=== PATIENT | male | born 1965 | race Caucasian/White ===

== ENCOUNTER 2017-04-09 20:47 | Inpatient (IN) | payer OTHER ==
[~2017-04-09] VITALS: Ht 182.9 cm; Wt 92.8 kg
[~2017-04-09 20:47] MED LIST: ASPI-650; BENA10TA; DIVA500T33; INSU100V18; LEVEM; METF1000; NCN500CCR; OLAN15TA3; PIOG30TA19; QUET200T; SERT100T
[2017-04-09 22:36] VITALS: TEMP 98.1
[2017-04-09] MEDS ORDERED: SOD CHLORIDE 0.9% 1,000 ML IV STA (22:38)
[2017-04-09 23:17] LABS: ADD SCAN DIFF NO
[2017-04-09 23:19] LABS: BASOPHIL # 0.1 10^3/ul (0.0-0.1); BASOPHILS % 0.6 % (0.0-2.0); EOSINOPHILS # 0.2 10^3/ul (0.0-0.5); EOSINOPHILS % 2.5 % (0.0-7.0); HEMATOCRIT 39.9 % (42.0-52.0); LYMPHOCYTES # 3.2 10^3/ul (0.8-2.9); LYMPHOCYTES % 32.7 % (15.0-51.0); MEAN CORPUSCULAR HEMOGLOBIN 29.5 pg (29.0-33.0); MEAN CORPUSCULAR HGB CONC 35.1 g/dl (32.0-37.0); MEAN CORPUSCULAR VOLUME 84.2 fl (82.0-101.0); MEAN PLATELET VOLUME 9.4 fl (7.4-10.4); NEUTROPHIL # 5.2 10^3/ul (1.6-7.5); PLATELET COUNT 245 10^3/UL (140-415); RED BLOOD COUNT 4.74 10^6/ul (4.70-6.10); RED CELL DISTRIBUTION WIDTH 12.3 % (11.5-14.5); WHITE BLOOD COUNT 9.7 10^3/ul (4.8-10.8)
[2017-04-09 23:37] LABS: CALCIUM 9.9 mg/dl (8.4-10.2); CREATININE 0.55 mg/dl (0.61-1.24)
[2017-04-09] MEDS ORDERED: KETOROLAC 30 MG INJ IV STA (23:49)
[2017-04-10] MEDS ORDERED: CLINDAMYCIN 900 MG/D5W (PMX) 50 ML IVPB SCH
[2017-04-10] MEDS ORDERED: VANCOMYCIN 1 GM (PMX) 250 ML IVPB SCH
[2017-04-10] MEDS ORDERED: LIDOCAINE 1% (MPF) 5 ML VIAL SC ONE
--- NOTE | 2017-04-10 00:40 | RADRPT ---
PROCEDURE: XR right foot. CLINICAL INDICATION: Right foot pain and swelling. Clinical concern for osteomyelitis TECHNIQUE: AP, lateral and oblique views of the right foot were obtained. COMPARISON: None. FINDINGS: Mineralization is within normal limits. Callus formation about a healed fifth metatarsal fracture i s present. The subtle chronic-appearing periosteal reaction of the second proximal phalanx may be f or old injury. There is no focal demineralization to suggest osteomyelitis. There is no evidence f or dislocation. Mild narrowing of the metatarsal phalangeal joint of the great toe is seen. Metall ic internal fixation hardware of the distal tibia is present. The soft tissues are unremarkable. Th ere is no evidence for radiopaque foreign body. RPTAT:HJJR IMPRESSION: 1. No evidence of osteomyelitis involving the right foot. 2. Callus formation about an old healed right third metatarsal fracture. 3. Some periosteal reaction adjacent to the second proximal phalanx may be the sequela of prior inj ury. Physician Abdi Date Time Electronically viewed and signed by Physician Abdi on 04/10/2017 00:39 JR/
[2017-04-10] MEDS ORDERED: ACETAMINOPHEN 325 MG TAB PO PRN (01:00)
[2017-04-10] MEDS ORDERED: ONDANSETRON 4 MG INJ IV PRN ×2 (01:00→02:30)
[2017-04-10] MEDS ORDERED: HYDROCODONE/APAP (5/325) TAB PO ONE (01:00)
[2017-04-10 01:30] VITALS: Ht 182.9 cm; Wt 92.8 kg
[2017-04-10 01:33] VITALS: BP_SYST 171; BP_SYST 182; BP_DIAS 82; BP_DIAS 85; RESP 18
[2017-04-10] MEDS ORDERED: VANCOMYCIN IV PER PHARMACY XX SCH (02:30)
[2017-04-10] MEDS ORDERED: ZOLPIDEM 5 MG TAB PO PRN (02:30)
[2017-04-10] MEDS ORDERED: DOCUSATE SODIUM 100 MG CAP PO PRN (02:30)
[2017-04-10] MEDS ORDERED: BISACODYL (EC) 5 MG TAB PO PRN (02:30)
[2017-04-10] MEDS ORDERED: NACL 0.9% 3 ML SYG IV SCH (02:30)
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
[2017-04-10 05:00] VITALS: BP 150/73; PULSE 66; RESP 18
--- NOTE | 2017-04-10 05:21 | HP ---
Date/Time of Note Date/Time of Note DATE: 04/10/17 TIME: 05:20 Assessment/Plan VTE Prophylaxis VTE Prophylaxis Intervention: LMWH Lines/Catheters IV Catheter Type (from [facility]): Saline Lock Assessment/Plan Chief Complaint/Hosp Course This is a 51-year-old male being admitted to the [facility] floor for: #1 diabetic foot ulcer/infection: No signs of osteomyelitis on xray. Continue IV antibiotics of vancomycin and Clinda. Wound culture. Consult podiatry #2 bipolar disorder: Verify home medications and resume. Check Depakote level. Patient states that he is not on Depakote however it is on his med rec nonetheless we will check a Depakote level and verify his home medications. #3 diabetes mellitus: appears poorly controlled. Verify home insulin dose. Insulin sliding scale. Carb controlled diet. Check a1c. #4 hypertension: Continue home medications #5 DVT GI prophylaxis: Lovenox, Protonix Further treatment strategy will be implemented as per the clinical course Problems: HPI/ROS Admit Date/Time Admit Date/Time Apr 10, 2017 at 00:47 Hx of Present Illness Chief complaint: Right foot ulcer with drainage 5 days This 51-year-old male presents emergency room for increasingly painful right foot ulcer and has had some whitish yellow drainage for the last 5 days. Is diabetic and says that her sugars been running in the 200s lately. He usually cannot feel his feet very well but is feeling pangs of pain coming from the right foot. Is also been a very foul odor from the foot lately. States that he has never been antibiotics for this, aside from topical triple antibiotic treatment. Has had chills but no fevers. Allergies: NKDA Medications: See TY BARNES Const: As per HPI Eyes : No pain discharge or redness or change in visual acuity ENT: No pain, sore throat, congestion, congestion, dysphagia or discharge Respiratory: No shortness of breath, cough, sputum, wheezing, or pleuritic pain Cardiovascular: No chest pain, palpitation, PND, or edema GI : no change in appetite, abdominal pain, nausea, vomiting, diarrhea, constipation, or change in the color his stool Genitourinary: No dysuria, hematuria, flank pain , discharge or CVA tenderness Musculoskeletal: As per HPI Skin: As per HPI Neuro: No headache, dizziness, syncope, seizure, focal weakness Endocrine: No polyuria, polydipsia, temperature intolerance Psych: No hallucination, depression, anxiety or suicidal ideation PMH/Family/Social Past Medical History Diabetes, hypertension, right foot infection, hyperlipidemia, bipolar disorder Past Surgical History Ankle surgery, right jaw surgery Family History Significant Family History: hypertension (Brother) Social History Smoking Status: Current every day smoker (1 pack per day 40 years) Exam/Review of Systems Vital Signs Vitals Vital Signs Date Time Temp Pulse Resp B/P Pulse Ox O2 Delivery O2 Flow Rate FiO2 04/10/17 01:33 97.6 66 18 171/82 97 04/10/17 01:09 Room Air Exam Exam General: Patient is well-developed well-nourished The patient is alert oriented -3 lying comfortably in bed. HEENT: Atraumatic, normocephalic. The pupils are equal, round and reactive. Extraocular motor are intact Neck: Supple with full range of motion. No rigidity or meningismus Chest: Nontender Lungs: Clear to auscultation bilaterally no crackles rales or wheezing Heart: Normal S1-S2, Regular rhythm and rate. No murmur, S3, or S4 Abdomen: Soft , nontender, nondistended , bowel sounds are present. No guarding no rebound tenderness , No masses or organomegaly. No costovertebral temporal angle mass Extremities: Right foot with plantar ulceration to ball of foot approximately 2 cm, some purulent material. No abscess or fluctuance, no necrosis but there is surrounding erythema and erythema spreading to the foot and ankle with positive calor. Capillary refill is intact. No cyanosis. There is some foot swelling. (As per my exam and ED physician exam) Neurologic: Normal mental status, speech normal, cranial nerves II through XII are intact, motor and sensory are intact, no focal weakness Additional Comments PROCEDURE: XR right foot. CLINICAL INDICATION: Right foot pain and swelling. Clinical concern for osteomyelitis TECHNIQUE: AP, lateral and oblique views of the right foot were obtained. COMPARISON: None. FINDINGS: Mineralization is within normal limits. Callus formation about a healed fifth metatarsal fracture is present. The subtle chronic-appearing periosteal reaction of the second proximal phalanx may be for old injury. There is no focal demineralization to suggest osteomyelitis. There is no evidence for dislocation. Mild narrowing of the metatarsal phalangeal joint of the great toe is seen. Metallic internal fixation hardware of the distal tibia is present. The soft tissues are unremarkable. There is no evidence for radiopaque foreign body. RPTAT:HJJR IMPRESSION: 1. No evidence of osteomyelitis involving the right foot. 2. Callus formation about an old healed right third metatarsal fracture. 3. Some periosteal reaction adjacent to the second proximal phalanx may be the sequela of prior injury. Physician Abdi Date Time Electronically viewed and signed by Mushtaq Vang Physician on 04/10/2017 00:39 Labs Result Diagram: 04/09/17224904/09/17 2250 Medications Medications Current Medications Ondansetron HCl (Zofran Inj) 4 mg Q6H PRN IV NAUSEA AND/OR VOMITING; Start 04/10 at 02:30 Acetaminophen (Tylenol Tab) 650 mg Q6H PRN PO PAIN LEVEL 1-3 OR FEVER; Start at 02:30 Morphine Sulfate (morphine) 2 mg Q4H PRN IV SEVERE PAIN LEVEL 7-10; Start at 02:30 Docusate Sodium (Colace) 100 mg Q12H PRN PO CONSTIPATION; Start 04/10/17 at 02: 30 Bisacodyl (Dulcolax) 5 mg DAILY PRN PO CONSTIPATION; Start 04/10/17 at 02:30 Zolpidem Tartrate (Ambien) 5 mg QHS PRN PO SLEEP; Start 04/10/17 at 02:30 Pantoprazole (Protonix Iv) 40 mg DAILY@06 IV ; Start 04/10/17 at 06:00 Enoxaparin Sodium (Lovenox) 40 mg DAILY SC ; Start 04/10/17 at 09:00 Aspirin (Aspirin) 81 mg DAILY PO ; Start 04/10/17 at 09:00 Benazepril HCl (Lotensin) 10 mg DAILY PO ; Start 04/10/17 at 09:00 Divalproex Sodium (Depakote) 500 mg DAILY PO ; Start 04/10/17 at 09:00 Sertraline HCl (Zoloft) 100 mg DAILY PO ; Start 04/10/17 at 09:00 Olanzapine (Zyprexa) 15 mg DAILY PO ; Start 04/10/17 at 09:00 Quetiapine Fumarate 200 mg 200 mg DAILY PO ; Start 04/10/17 at 09:00 Vancomycin HCl/ Sodium Chloride (Vancocin/NS) 250 ml @ 83.333 mls/ hr Q12H IVPB ; Start 04/10/17 at 09:00 MAREN ANTUNEZ Apr 10, 2017 05:21
[2017-04-10] MEDS: PANTOPRAZOLE 40 MG INJ IV SCH (05:31)
[2017-04-10] MEDS ORDERED: GLUCOSE GEL 15 GRAM TUBE BUCCAL PRN (06:00)
[2017-04-10] MEDS ORDERED: GLUCAGON 1 MG INJ IM PRN (06:00)
[2017-04-10] MEDS ORDERED: DEXTROSE 50% 50 ML SYRINGE IV PRN ×2 (06:00)
[2017-04-10] MEDS ORDERED: GLUCOSE GEL 15 GRAM TUBE PO PRN ×2 (06:00)
[2017-04-10 06:12] LABS: ADD SCAN DIFF NO
[2017-04-10 06:14] LABS: BASOPHIL # 0.1 10^3/ul (0.0-0.1); BASOPHILS % 0.6 % (0.0-2.0); EOSINOPHILS # 0.3 10^3/ul (0.0-0.5); EOSINOPHILS % 3.2 % (0.0-7.0); HEMATOCRIT 38.2 % (42.0-52.0); HEMOGLOBIN 13.4 g/dl (14.0-18.0); LYMPHOCYTES # 3.9 10^3/ul (0.8-2.9); MEAN CORPUSCULAR HEMOGLOBIN 29.6 pg (29.0-33.0); MEAN CORPUSCULAR HGB CONC 35.1 g/dl (32.0-37.0); MEAN CORPUSCULAR VOLUME 84.5 fl (82.0-101.0); MEAN PLATELET VOLUME 9.2 fl (7.4-10.4); MONOCYTE # 0.7 10^3/ul (0.3-0.9); MONOCYTES % 7.7 % (0.0-11.0); NEUTROPHIL # 3.8 10^3/ul (1.6-7.5); NEUTROPHILS % 43.3 % (39.0-77.0); PLATELET COUNT 234 10^3/UL (140-415); RED BLOOD COUNT 4.52 10^6/ul (4.70-6.10); RED CELL DISTRIBUTION WIDTH 12.4 % (11.5-14.5); WHITE BLOOD COUNT 8.7 10^3/ul (4.8-10.8)
[2017-04-10 06:50] LABS: ALBUMIN 3.9 g/dl (3.3-4.9); ALBUMIN/GLOBULIN RATIO 1.56; BILIRUBIN,INDIRECT 0.1 mg/dl (0-1.1); BILIRUBIN,TOTAL 0.1 mg/dl (0.2-1.3); CALCIUM 8.9 mg/dl (8.4-10.2); CREATININE 0.56 mg/dl (0.61-1.24); MAGNESIUM 1.5 mg/dl (1.7-2.5); POTASSIUM 4.3 mmol/L (3.5-5.1); TOTAL PROTEIN 6.4 g/dl (6.1-8.1)
[2017-04-10] MEDS ORDERED: LEVEMIR SC (06:53)
[2017-04-10] MEDS ORDERED: METF1000 PO (06:53)
[2017-04-10] MEDS ORDERED: LIT300 PO (06:53)
[2017-04-10] MEDS ORDERED: SERT100T PO (06:53)
[2017-04-10] MEDS ORDERED: OLAN15TA3 PO (06:53)
[2017-04-10 07:25] VITALS: BP 156/83; RESP 18
[2017-04-10] MEDS: QUETIAPINE 100 MG TAB PO SCH (08:15)
[2017-04-10] MEDS: ASPIRIN 81 MG TAB PO SCH (08:15)
[2017-04-10 08:16] LABS: THYROID STIMULATING HORMONE 2.84 MIU/L (0.465-4.680)
[2017-04-10] MEDS: OLANZAPINE 5 MG TAB PO SCH (08:16)
[2017-04-10] MEDS: SERTRALINE 100 MG TAB PO SCH (08:16)
[2017-04-10] MEDS: BENAZEPRIL 10 MG TAB PO SCH (08:17)
[2017-04-10] MEDS: INSULIN ASPART [NOVOLOG] 3 ML PEN SC SCH ×4 (08:20→21:00)
[2017-04-10] MEDS: ENOXAPARIN 40 MG/0.4 ML SYG SC SCH (08:21)
[2017-04-10] MEDS ORDERED: INSULIN DETEMIR [LEVEMIR] 3ML CART SC SCH ×3 (09:00→21:00)
[2017-04-10] MEDS ORDERED: SERTRALINE 100 MG TAB PO SCH (09:00)
[2017-04-10] MEDS: NICOTINE (14 MG/24 HR) PATCH TRANSDERM SCH (09:00)
[2017-04-10] MEDS ORDERED: OLANZAPINE 5 MG TAB PO SCH (09:00)
[2017-04-10] MEDS ORDERED: DIVALPROEX (EC) 500 MG TAB PO SCH (09:00)
[2017-04-10] MEDS ORDERED: MAGNESIUM SULFATE 1 GM/D5W 100 ML IVPB ONE (10:00)
[2017-04-10] MEDS ORDERED: hydrALAzine 20 MG INJ IV PRN (10:00)
[2017-04-10] MEDS: VANCOMYCIN 1.5 GM in SOD CHLORIDE 0.9% 250 ML IVPB SCH ×2 (10:15→22:25)
[2017-04-10] MEDS: LITHIUM CARBONATE 300 MG CAP PO SCH ×2 (10:15→21:34)
[2017-04-10] MEDS: INSULIN DETEMIR [LEVEMIR] 3ML CART SC SCH ×2 (10:39→21:45)
--- NOTE | 2017-04-10 14:25 | RADRPT ---
PROCEDURE: XR Chest. CLINICAL INDICATION: PICC line placement TECHNIQUE: PA and lateral chest x-ray. COMPARISON: None. FINDINGS: Left-sided PICC line terminates 3 cm into right atrium. The lungs are clear. No pleural effusion identified. No evidence of pneumothorax. The cardiomediastinal silhouette is unremarkable. The soft tissues are within normal limits. Bony structures are unremarkable. IMPRESSION: 1. No acute disease is seen in the chest. 2. Left-sided PICC line terminates 3 cm into the right atrium and should be repositioned. RPTAT: QQ .Geovani Jeffery MD, Date Time Electronically viewed and signed by .Geovani Jeffery MD, on 04/10/2017 14:25 .M/
[2017-04-10] MEDS: morphine 2 MG INJ IV PRN (14:58)
--- NOTE | 2017-04-10 14:58 | HP ---
Date/Time of Note Date/Time of Note DATE: 04/10/17 TIME: 14:41 Assessment/Plan VTE Prophylaxis VTE Prophylaxis Intervention: SCD's Lines/Catheters IV [facility] [place] Assessment/Plan Chief Complaint/Hosp Course Right foot infected diabetic foot ulceration Cellulitis/ abscess right foot Prior metatarsal fracture DM2 with neuropathy/ poor glycemic control Delayed wound healing Failed outpatient treatment Problems: Assessment/Plan Right foot infected diabetic foot ulceration Cellulitis/ abscess right foot Prior metatarsal fracture DM2 with neuropathy/ poor glycemic control Delayed wound healing Failed outpatient treatment H&P reviewed. Reviewed radiographs. No radiographic evidence of OM. Rec incision and drainage with debridement of ulceration. Obtain consent. Discussed with patient. At risk for worsening infection/ limb loss. Right foot wound cultures. Pt on Vanc. Add empiric abx/ af Zosyn/ Diflucan. Further recs once culture results available. Coordination of care with nursing. Daily wound care recommendations given. Dispesnse postop shoe. Rec eval NWB with crutches/ walker right foot. HPI/ROS Admit Date/Time Admit Date/Time Apr 10, 2017 at 00:47 Hx of Present Illness Right foot infected diabetic ulceration. Present for several months. Worsen recently. Pt failed outpatient abx and wound care. Pt with poorly controlled DM. Has pain to right foot. Had general malaise. ROS Laboratory Tests Test 04/09/17 22:50 04/10/17 05:16 04/10/17 07:47 04/10/17 12:13 White Blood Count 9.710^3/ul 8.710^3/ul Red Blood Count 4.7410^6/ul 4.5210^6/ul Hemoglobin 14.0g/dl 13.4g/dl Hematocrit 39.9% 38.2% Mean Corpuscular Volume 84.2fl 84.5fl Mean Corpuscular Hemoglobin 29.5pg 29.6pg Mean Corpuscular Hemoglobin Concent 35.1g/dl 35.1g/dl Red Cell Distribution Width 12.3% 12.4% Platelet Count 22837^3/UL 68361^3/UL Mean Platelet Volume 9.4fl 9.2fl Neutrophils % 54.0% 43.3% Lymphocytes % 32.7% 45.0% Monocytes % 10.0% 7.7% Eosinophils % 2.5% 3.2% Basophils % 0.6% 0.6% Nucleated Red Blood Cells % 0.0/100WBC 0.0/100WBC Neutrophils # 5.210^3/ul 3.810^3/ul Lymphocytes # 3.210^3/ul 3.910^3/ul Monocytes # 1.010^3/ul 0.710^3/ul Eosinophils # 0.210^3/ul 0.310^3/ul Basophils # 0.110^3/ul 0.110^3/ul Nucleated Red Blood Cells # 0.010^3/ul 0.010^3/ul Sodium Level 135mmol/L 134mmol/L Potassium Level 4.0mmol/L 4.3mmol/L Chloride Level 96mmol/L 104mmol/L Carbon Dioxide Level 25mmol/L 23mmol/L Anion Gap 18 11 Blood Urea Nitrogen 18mg/dl 14mg/dl Creatinine 0.55mg/dl 0.56mg/dl Glucose Level 382mg/dl 358mg/dl Calcium Level 9.9mg/dl 8.9mg/dl Hemoglobin A1c 13.7% Magnesium Level 1.5mg/dl Total Bilirubin 0.1mg/dl Direct Bilirubin 0.00mg/dl Indirect Bilirubin 0.1mg/dl Aspartate Amino Transf (AST/SGOT) 51IU/L Alanine Aminotransferase (ALT/SGPT) 55IU/L Alkaline Phosphatase 118IU/L Total Protein 6.4g/dl Albumin 3.9g/dl Globulin 2.50g/dl Albumin/Globulin Ratio 1.56 Triglycerides Level 101mg/dl Cholesterol Level 120mg/dl LDL Cholesterol, Calculated 76mg/dl HDL Cholesterol 24mg/dl Cholesterol/HDL Ratio 5.0RATIO Thyroid Stimulating Hormone (TSH) 2.840MIU/L Valproic Acid (Depakene) Level < 10ug/ml Bedside Glucose 371mg/dL 139mg/dL Current Medications Medications (Trade) Dose Ordered Sig/Ramírez Route PRN Reason Start Time Stop Time Status Last Admin Dose Admin Sodium Chloride 1,000 ml @ 1,000 mls/hr Q1H STAT IV 04/09/17 22:38 04/09/17 23:37 DC 04/09/17 22:59 1,000 MLS/HR Vancomycin HCl 250 ml @ 125 mls/hr ONCE IVPB 04/10/17 00:00 04/10/17 01:59 DC 04/10/17 00:38 125 MLS/HR Clindamycin HCl/ Dextrose (Cleocin 900 Mg/ D5W (Pmx)) 50 ml @ 50 mls/hr ONCE IVPB 04/10/17 00:00 04/10/17 00:59 DC 04/10/17 00:18 50 MLS/HR Lidocaine (Xylocaine 1% (Mpf)) 5 ml ONCE ONCE SC 04/10/17 00:00 04/10/17 00:01 DC 04/10/17 13:36 5 ML Ketorolac Tromethamine (Toradol) 30 mg ONCE STAT IV 04/09/17 23:49 04/09/17 23:50 DC 04/10/17 00:17 30 MG Ondansetron HCl (Zofran Inj) 4 mg BRIDGE ORDER PRN IV NAUSEA AND/OR VOMITING 04/10/17 01:00 04/10/17 02:10 DC Acetaminophen (Tylenol Tab) 650 mg ER BRIDGE PRN PO MILD PAIN/FEVER 04/10/17 01:00 04/10/17 02:10 DC Acetaminophen/ Hydrocodone Bitart ([place] (5/325)) 1 tab ONCE ONCE PO 04/10/17 01:00 04/10/17 01:01 DC IV Flush (NS 3 ml) 3 ml PER PROTOCOL IV 04/10/17 02:30 Ondansetron HCl (Zofran Inj) 4 mg Q6H PRN IV NAUSEA AND/OR VOMITING 04/10/17 02:30 Acetaminophen (Tylenol Tab) 650 mg Q6H PRN PO PAIN LEVEL 1-3 OR FEVER 04/10/17 02:30 Morphine Sulfate (morphine) 2 mg Q4H PRN IV SEVERE PAIN LEVEL 7-10 04/10/17 02:30 Docusate Sodium (Colace) 100 mg Q12H PRN PO CONSTIPATION 04/10/17 02:30 Bisacodyl (Dulcolax) 5 mg DAILY PRN PO CONSTIPATION 04/10/17 02:30 Zolpidem Tartrate (Ambien) 5 mg QHS PRN PO SLEEP 04/10/17 02:30 Pantoprazole (Protonix Iv) 40 mg DAILY@06 IV 04/10/17 06:00 04/10/17 05:31 40 MG Enoxaparin Sodium (Lovenox) 40 mg DAILY SC 04/10/17 09:00 04/10/17 08:21 40 MG Vancomycin HCl (Vanco Iv Per Pharmacy) VANCOMYCIN PER PHARMACY PER PROTOCOL XX 04/10/17 02:30 Aspirin (Aspirin) 81 mg DAILY PO 04/10/17 09:00 04/10/17 08:15 81 MG Benazepril HCl (Lotensin) 10 mg DAILY PO 04/10/17 09:00 04/10/17 08:17 10 MG Divalproex Sodium (Depakote) 500 mg DAILY PO 04/10/17 09:00 04/10/17 09:00 DC Sertraline HCl (Zoloft) 100 mg DAILY PO 04/10/17 09:00 04/10/17 09:00 DC Olanzapine (Zyprexa) 15 mg DAILY PO 04/10/17 09:00 04/10/17 09:00 DC Quetiapine Fumarate 200 mg 200 mg DAILY PO 04/10/17 09:00 04/10/17 08:15 200 MG Vancomycin HCl/ Sodium Chloride (Vancocin/NS) 250 ml @ 83.333 mls/ hr Q12H IVPB 04/10/17 09:00 04/10/17 10:15 83.333 MLS/HR Miscellaneous Information (* Miscellaneous Pharmacy Order) Discontinue current oral sulfonylur... ONCE ONCE XX 04/10/17 05:30 04/10/17 05:35 DC Diagnostic Test (Pha) (Accu-Chek) 1 ea 02 XX 04/11/17 02:00 04/11/17 02:00 DC Miscellaneous Information (* Miscellaneous Pharmacy Order) HYPOGLYCEMIA PROTOCOL w... ONCE ONCE XX 04/10/17 05:30 04/10/17 05:35 DC Insulin Aspart (Novolog Insulin Pen) NOVOLOG *MODERATE* ALGORITHM WITH MEALS BEDTIME SC 04/10/17 08:15 04/10/17 08:20 12 UNIT Miscellaneous Information (* Miscellaneous Pharmacy Order) Discontinue all previ... ONCE ONCE XX 04/10/17 05:30 04/10/17 05:35 DC Diagnostic Test (Pha) (Accu-Chek) 1 ea 02 XX 04/11/17 02:00 Miscellaneous Information 1 ea NOTE XX 04/10/17 06:00 Glucose (Glutose) 15 gm Q15M PRN PO DECREASED GLUCOSE 04/10/17 06:00 Glucose (Glutose) 22.5 gm Q15M PRN PO DECREASED GLUCOSE 04/10/17 06:00 Dextrose (D50w Syringe) 25 ml Q15M PRN IV DECREASED GLUCOSE 04/10/17 06:00 Dextrose (D50w Syringe) 50 ml Q15M PRN IV DECREASED GLUCOSE 04/10/17 06:00 Glucagon (Glucagen) 1 mg Q15M PRN IM DECREASED GLUCOSE 04/10/17 06:00 Glucose (Glutose) 15 gm Q15M PRN BUCCAL DECREASED GLUCOSE 04/10/17 06:00 Nicotine (Nicoderm 14 Mg/ 24hr) 1 patch DAILY TRANSDERM 04/10/17 09:[address] [place] Carbonate ([place] Carbonate) 300 mg BID PO 04/10/17 09:00 04/10/17 10:15 300 MG Olanzapine (Zyprexa) 15 mg DAILY PO 04/10/17 09:00 04/10/17 08:16 15 MG Sertraline HCl (Zoloft) 200 mg DAILY PO 04/10/17 09:00 04/10/17 08:16 200 MG Insulin Detemir (Levemir) 60 unit BID SC 04/10/17 09:00 04/10/17 09:46 DC Insulin Detemir (Levemir) 15 unit DAILY SC 04/10/17 10:00 04/10/17 10:00 DC Insulin Detemir (Levemir) 30 unit BID SC 04/10/17 21:00 04/10/17 21:00 DC Hydralazine HCl 10 mg 10 mg Q6H PRN IV SBP GREATER THAN 160 04/10/17 10:00 Magnesium Sulfate/ Dextrose (Magnesium Sulfate 1 Gm/D5W) 100 ml @ 100 mls/hr ONCE ONCE IVPB 04/10/17 10:00 04/10/17 10:59 DC Insulin Detemir (Levemir) 30 unit BID SC 04/10/17 10:30 04/10/17 10:39 30 UNIT IV Flush 10 ml 10 ml PRN PRN IV IV PROTOCOL 04/10/17 14:30 Piperacillin Sod/ Tazobactam Sod (Zosyn 3.375gm/ 100 ml (Pmx)) 100 ml @ 200 mls/hr Q8 IVPB 04/10/17 22:00 UNV Fluconazole (Diflucan) 200 mg DAILY PO 04/11/17 09:00 UNV Eyes: visual change (poor vision) Skin: other (right foot ulceration with malodor and drainage) Endocrine: dry skin PMH/Family/Social Social History Smoking Status: Current every day smoker (1 pack per day 40 years) Exam/Review of Systems Vital Signs Vitals Vital Signs Date Time Temp Pulse Resp B/P Pulse Ox O2 Delivery O2 Flow Rate FiO2 04/10/17 07:25 97.4 63 18 156/83 96 04/10/17 05:00 Room Air Exam Eyes: EOMI, PERRL, nl conjunctiva, nl lids, nl sclera Respiratory: normal air movement, No congested cough, No crackles/rales, No diminished breath sounds, No intercostal retraction, No labored breathing, No other, No respirations, No tactile fremitus, No wheezing Musculoskeletal: other (incision healed to right medial ankle. varus deformity of forefoot. limited hindfoot PROM. ) Extremities: edema (right foot) Neurological: other (decreased protective sensation) Skin: other (left foot ulceration with ascending cellulitis to dorsal aspect. Plantar ulceration sub 4th MPJ with tunneling. Mycotic changes to nails. Severe dry skin. ), puncture Labs Result Diagram: 04/10/1751504/10/17515 Medications Medications Current Medications Ondansetron HCl (Zofran Inj) 4 mg Q6H PRN IV NAUSEA AND/OR VOMITING; Start 04/10 at 02:30 Acetaminophen (Tylenol Tab) 650 mg Q6H PRN PO PAIN LEVEL 1-3 OR FEVER; Start at 02:30 Morphine Sulfate (morphine) 2 mg Q4H PRN IV SEVERE PAIN LEVEL 7-10; Start at 02:30 Docusate Sodium (Colace) 100 mg Q12H PRN PO CONSTIPATION; Start 04/10/17 at 02: 30 Bisacodyl (Dulcolax) 5 mg DAILY PRN PO CONSTIPATION; Start 04/10/17 at 02:30 Zolpidem Tartrate (Ambien) 5 mg QHS PRN PO SLEEP; Start 04/10/17 at 02:30 Pantoprazole (Protonix Iv) 40 mg DAILY@06 IV Last administered on 04/10/17 05: 31; Admin Dose 40 MG; Start 04/10/17 at 06:00 Enoxaparin Sodium (Lovenox) 40 mg DAILY SC Last administered on 04/10/17 08:21 ; Admin Dose 40 MG; Start 04/10/17 at 09:00 Aspirin (Aspirin) 81 mg DAILY PO Last administered on 04/10/17 08:15; Admin Dose 81 MG; Start 04/10/17 at 09:00 Benazepril HCl (Lotensin) 10 mg DAILY PO Last administered on 04/10/17 08:17; Admin Dose 10 MG; Start 04/10/17 at 09:00 Quetiapine Fumarate 200 mg 200 mg DAILY PO Last administered on 04/10/17 08:15 ; Admin Dose 200 MG; Start 04/10/17 at 09:00 Vancomycin HCl/ Sodium Chloride (Vancocin/NS) 250 ml @ 83.333 mls/ hr Q12H IVPB Last administered on 04/10/17 10:15; Admin Dose 83.333 MLS/HR; Start at 09:00 Diagnostic Test (Pha) (Accu-Chek) 1 ea 02 XX ; Start 04/11/17 at 02:00 Miscellaneous Information 1 ea NOTE XX ; Start 04/10/17 at 06:00 Glucose (Glutose) 15 gm Q15M PRN PO DECREASED GLUCOSE; Start 04/10/17 at 06:00 Glucose (Glutose) 22.5 gm Q15M PRN PO DECREASED GLUCOSE; Start 04/10/17 at 06:00 Dextrose (D50w Syringe) 25 ml Q15M PRN IV DECREASED GLUCOSE; Start 04/10/17 at 06:00 Dextrose (D50w Syringe) 50 ml Q15M PRN IV DECREASED GLUCOSE; Start 04/10/17 at 06:00 Glucagon (Glucagen) 1 mg Q15M PRN IM DECREASED GLUCOSE; Start 04/10/17 at 06:00 Glucose (Glutose) 15 gm Q15M PRN BUCCAL DECREASED GLUCOSE; Start 04/10/17 at 06: 00 Nicotine (Nicoderm 14 Mg/ 24hr) 1 patch DAILY TRANSDERM ; Start 04/10/17 at 09:[address] [place] Carbonate ([place] Carbonate) 300 mg BID PO Last administered on 10:15; Admin Dose 300 MG; Start 04/10/17 at 09:00 Olanzapine (Zyprexa) 15 mg DAILY PO Last administered on 04/10/17 08:16; Admin Dose 15 MG; Start 04/10/17 at 09:00 Sertraline HCl (Zoloft) 200 mg DAILY PO Last administered on 04/10/17 08:16; Admin Dose 200 MG; Start 04/10/17 at 09:00 Hydralazine HCl (Apresoline) 10 mg Q6H PRN IV SBP GREATER THAN 160; Start at 10:00 Insulin Detemir (Levemir) 30 unit BID SC Last administered on 04/10/17 10:39; Admin Dose 30 UNIT; Start 04/10/17 at 10:30 IV Flush 10 ml 10 ml PRN PRN IV IV PROTOCOL; Start 04/10/17 at 14:30 Piperacillin Sod/ Tazobactam Sod (Zosyn 3.375gm/ 100 ml (Pmx)) 100 ml @ 200 mls /hr Q8 IVPB ; Start 04/10/17 at 22:00; Status UNV Fluconazole (Diflucan) 200 mg DAILY PO ; Start 04/11/17 at 09:00; Status UNV ARON MORALEZ DPM Apr 10, 2017 14:52
--- NOTE | 2017-04-10 15:30 | OPR ---
Date/Time of Note Date/Time of Note DATE: 04/10/17 TIME: 15:27 Operative Report Free Text/Dictation Right foot infected diabetic foot ulceration Right foot abscess DM2 poor controlled/ peripheral neuropathy Cellulitis Failed outpatient treatment Preoperative Diagnosis Right foot infected diabetic foot ulceration Right foot abscess DM2 poor controlled/ peripheral neuropathy Cellulitis Failed outpatient treatment Postoperative Diagnosis Right foot infected diabetic foot ulceration Right foot abscess DM2 poor controlled/ peripheral neuropathy Cellulitis Failed outpatient treatment Operation/Procedure Performed Right foot incision and drainage of abscess 5th toe/ irrigation Right foot excisional debridement of ulceration skin/ subcut/ fascia 3 x 1 cm with cultures Surgeon: ARON MORALEZ DPM Anesthesia: other (patient insensate) Estimated Blood Loss: 0 - 10 ml's Specimens tissue culture Grafts/Implants none Complications: None ARON MORALEZ DPM Apr 10, 2017 15:30
--- NOTE | 2017-04-10 16:16 | RADRPT ---
PROCEDURE: Ultrasound guidance for placement of needle in left upper extremity vein. CLINICAL INDICATION: Venous access. TECHNIQUE: Limited sonography of the left upper extremity was performed. Ultrasound images were recorded and s tored in the patient's medical record. COMPARISON: None. FINDINGS: The ultrasound images demonstrate a patent left upper extremity vein. The PICC line was inserted by the PICC line nurse. IMPRESSION: 1. Ultrasound guidance for a needle placement in a left upper extremity vein. 2. The left upper extremity vein is patent. RPTAT: QQ .Marques Ramos MD, MD Date Time Electronically viewed and signed by .Marques Ramos MD, MD on 04/10/2017 16:16 .R/
[2017-04-10] MEDS: PIPER-TAZO 3.375 GM IV (PMX) 100 ML IVPB SCH ×2 (17:18→21:32)
[2017-04-10 19:19] VITALS: BP 148/73; RESP 20
[2017-04-10] MEDS: CLOTRIMAZOLE 1% 30 GM CR TOP SCH (21:35)
[2017-04-10] MEDS: SODIUM HYPOCHLORITE 1/40% 1L IRRIG IRR SCH (21:35)
[2017-04-10] MEDS: GENTAMICIN 0.1% 15 GM OINT TOP SCH (22:25)
[2017-04-11 01:31] VITALS: BP 131/64; RESP 20
[2017-04-11] MEDS: ACCU-CHEK XX SCH (02:00)
[2017-04-11] MEDS ORDERED: ACCU-CHEK XX SCH (02:00)
[2017-04-11] MEDS: PANTOPRAZOLE 40 MG INJ IV SCH (05:33)
[2017-04-11] MEDS: PIPER-TAZO 3.375 GM IV (PMX) 100 ML IVPB SCH ×3 (05:36→21:42)
[2017-04-11 06:05] LABS: ADD SCAN DIFF NO
[2017-04-11 06:46] LABS: BASOPHIL # 0.1 10^3/ul (0.0-0.1); BASOPHILS % 0.9 % (0.0-2.0); EOSINOPHILS # 0.2 10^3/ul (0.0-0.5); EOSINOPHILS % 2.8 % (0.0-7.0); HEMOGLOBIN 13.3 g/dl (14.0-18.0); LYMPHOCYTES # 2.6 10^3/ul (0.8-2.9); LYMPHOCYTES % 33.5 % (15.0-51.0); MEAN CORPUSCULAR HEMOGLOBIN 29.6 pg (29.0-33.0); MEAN CORPUSCULAR VOLUME 84.6 fl (82.0-101.0); MEAN PLATELET VOLUME 9.5 fl (7.4-10.4); MONOCYTE # 0.6 10^3/ul (0.3-0.9); MONOCYTES % 7.5 % (0.0-11.0); NEUTROPHIL # 4.3 10^3/ul (1.6-7.5); PLATELET COUNT 220 10^3/UL (140-415); RED BLOOD COUNT 4.49 10^6/ul (4.70-6.10); RED CELL DISTRIBUTION WIDTH 12.3 % (11.5-14.5); WHITE BLOOD COUNT 7.9 10^3/ul (4.8-10.8)
[2017-04-11 07:08] LABS: CALCIUM 8.4 mg/dl (8.4-10.2); CREATININE 0.5 mg/dl (0.61-1.24); MAGNESIUM 1.6 mg/dl (1.7-2.5); PHOSPHORUS 2.7 mg/dl (2.5-4.9)
[2017-04-11 07:27] VITALS: BP 172/81; RESP 20
[2017-04-11] MEDS: ASPIRIN 81 MG TAB PO SCH (08:02)
[2017-04-11] MEDS: OLANZAPINE 5 MG TAB PO SCH (08:02)
[2017-04-11] MEDS: LITHIUM CARBONATE 300 MG CAP PO SCH ×2 (08:03→20:17)
[2017-04-11] MEDS: SERTRALINE 100 MG TAB PO SCH (08:03)
[2017-04-11] MEDS: QUETIAPINE 100 MG TAB PO SCH (08:03)
[2017-04-11] MEDS: BENAZEPRIL 10 MG TAB PO SCH (08:03)
[2017-04-11] MEDS: GENTAMICIN 0.1% 15 GM OINT TOP SCH ×2 (08:04→20:17)
[2017-04-11] MEDS: SODIUM HYPOCHLORITE 1/40% 1L IRRIG IRR SCH ×2 (08:04→20:16)
[2017-04-11] MEDS: CLOTRIMAZOLE 1% 30 GM CR TOP SCH ×2 (08:04→20:17)
[2017-04-11] MEDS: VANCOMYCIN 1.5 GM in SOD CHLORIDE 0.9% 250 ML IVPB SCH ×2 (08:06→21:42)
[2017-04-11] MEDS: NICOTINE (14 MG/24 HR) PATCH TRANSDERM SCH (08:06)
[2017-04-11] MEDS: INSULIN DETEMIR [LEVEMIR] 3ML CART SC SCH ×2 (08:10→20:19)
[2017-04-11] MEDS: FLUCONAZOLE 200 MG TAB PO SCH (08:12)
[2017-04-11] MEDS: ENOXAPARIN 40 MG/0.4 ML SYG SC SCH (08:16)
[2017-04-11] MEDS: INSULIN ASPART [NOVOLOG] 3 ML PEN SC SCH ×4 (08:17→20:19)
--- NOTE | 2017-04-11 14:03 | PN ---
Date/Time of Note Date/Time of Note DATE: 04/11/17 TIME: 14:00 Assessment/Plan VTE Prophylaxis VTE Prophylaxis Intervention: SCD's Lines/Catheters IV Catheter Type (from Nrsg): PICC Line Central line still needed: No Assessment/Plan Assessment/Plan 51 yo M with mental illness, very poorly controlled DM2 admitted for diabetic foot infection with abscess, sp I&D 7.10 DFI: no OM on imaging, continue vanc zosyn pending further culture data as abscess has been I&D'd, suspect pt will only need an additional 5-7 days of abx post intervention, possibly PO abx pending culture results (levo/bactrim) DM2: cont SSI and long acting insulin CM cs for HH for wound care and home nurse to help with DM control DM diet SCDs Subjective 24 Hr Interval Summary Free Text/Dictation Pt states his foot feels ok. Lives with 3 roommates and hadn't been great about taking his insulin prior to admission. Exam/Review of Systems Vital Signs Vitals Vital Signs Date Time Temp Pulse Resp B/P Pulse Ox O2 Delivery O2 Flow Rate FiO2 04/11/17 07:27 98.9 61 20 172/81 97 04/10/17 05:00 Room Air Intake and Output 04/10/17 04/10/17 04/11/17 15:00 23:00 07:00 Intake Total 550 ml 610 ml Output Total 300 ml Balance 550 ml 310 ml Exam nad, sitting up in bed no mrg lungs clear abd soft no rashes R foot with 3cm open wound on bottom of foot proximal to great toe, active mod serous drainage wound culture still in process Results Result Diagram: 04/11/17 0455 04/11/17 0455 Results 24 hrs Laboratory Tests Test 04/10/17 17:17 04/10/17 21:38 04/11/17 04:55 04/11/17 08:01 Bedside Glucose 189 160 336 H White Blood Count 7.9 Red Blood Count 4.49 L Hemoglobin 13.3 L Hematocrit 38.0 L Mean Corpuscular Volume 84.6 Mean Corpuscular Hemoglobin 29.6 Mean Corpuscular Hemoglobin Concent 35.0 Red Cell Distribution Width 12.3 Platelet Count 220 Mean Platelet Volume 9.5 Neutrophils % 55.0 Lymphocytes % 33.5 Monocytes % 7.5 Eosinophils % 2.8 Basophils % 0.9 Nucleated Red Blood Cells % 0.0 Neutrophils # 4.3 Lymphocytes # 2.6 Monocytes # 0.6 Eosinophils # 0.2 Basophils # 0.1 Nucleated Red Blood Cells # 0.0 Sodium Level 133 L Potassium Level 4.0 Chloride Level 104 Carbon Dioxide Level 27 Anion Gap 6 L Blood Urea Nitrogen 15 Creatinine 0.50 L Glucose Level 298 H Calcium Level 8.4 Phosphorus Level 2.7 Magnesium Level 1.6 L Test 04/11/17 12:13 Bedside Glucose 154 Medications Medications Current Medications Ondansetron HCl (Zofran Inj) 4 mg Q6H PRN IV NAUSEA AND/OR VOMITING; Start 04/10 at 02:30 Acetaminophen (Tylenol Tab) 650 mg Q6H PRN PO PAIN LEVEL 1-3 OR FEVER; Start at 02:30 Morphine Sulfate (morphine) 2 mg Q4H PRN IV SEVERE PAIN LEVEL 7-10 Last administered on 04/10/17 14:58; Admin Dose 2 MG; Start 04/10/17 at 02:30 Docusate Sodium (Colace) 100 mg Q12H PRN PO CONSTIPATION; Start 04/10/17 at 02: 30 Bisacodyl (Dulcolax) 5 mg DAILY PRN PO CONSTIPATION; Start 04/10/17 at 02:30 Enoxaparin Sodium (Lovenox) 40 mg DAILY SC Last administered on 04/11/17 08:16 ; Admin Dose 40 MG; Start 04/10/17 at 09:00 Aspirin (Aspirin) 81 mg DAILY PO Last administered on 04/11/17 08:02; Admin Dose 81 MG; Start 04/10/17 at 09:00 Benazepril HCl (Lotensin) 10 mg DAILY PO Last administered on 04/11/17 08:03; Admin Dose 10 MG; Start 04/10/17 at 09:00 Quetiapine Fumarate 200 mg 200 mg DAILY PO Last administered on 04/11/17 08:03 ; Admin Dose 200 MG; Start 04/10/17 at 09:00 Vancomycin HCl/ Sodium Chloride (Vancocin/NS) 250 ml @ 83.333 mls/ hr Q12H IVPB Last administered on 04/11/17 08:06; Admin Dose 83.333 MLS/HR; Start 04/10 at 09:00 Diagnostic Test (Pha) (Accu-Chek) 1 ea 02 XX ; Start 04/11/17 at 02:00 Miscellaneous Information 1 ea NOTE XX ; Start 04/10/17 at 06:00 Glucose (Glutose) 15 gm Q15M PRN PO DECREASED GLUCOSE; Start 04/10/17 at 06:00 Glucose (Glutose) 22.5 gm Q15M PRN PO DECREASED GLUCOSE; Start 04/10/17 at 06:00 Dextrose (D50w Syringe) 25 ml Q15M PRN IV DECREASED GLUCOSE; Start 04/10/17 at 06:00 Dextrose (D50w Syringe) 50 ml Q15M PRN IV DECREASED GLUCOSE; Start 04/10/17 at 06:00 Glucagon (Glucagen) 1 mg Q15M PRN IM DECREASED GLUCOSE; Start 04/10/17 at 06:00 Glucose (Glutose) 15 gm Q15M PRN BUCCAL DECREASED GLUCOSE; Start 04/10/17 at 06: 00 Nicotine (Nicoderm 14 Mg/ 24hr) 1 patch DAILY TRANSDERM ; Start 04/10/17 at 09:00 [place] Carbonate ([place] Carbonate) 300 mg BID PO Last administered on 08:03; Admin Dose 300 MG; Start 04/10/17 at 09:00 Olanzapine (Zyprexa) 15 mg DAILY PO Last administered on 04/11/17 08:02; Admin Dose 15 MG; Start 04/10/17 at 09:00 Sertraline HCl (Zoloft) 200 mg DAILY PO Last administered on 04/11/17 08:03; Admin Dose 200 MG; Start 04/10/17 at 09:00 Insulin Detemir (Levemir) 30 unit BID SC Last administered on 04/11/17 08:10; Admin Dose 30 UNIT; Start 04/10/17 at 10:30 IV Flush 10 ml 10 ml PRN PRN IV IV PROTOCOL; Start 04/10/17 at 14:30 Piperacillin Sod/ Tazobactam Sod (Zosyn 3.375gm/ 100 ml (Pmx)) 100 ml @ 200 mls /hr Q8 IVPB Last administered on 04/11/17 05:36; Admin Dose 200 MLS/HR; Start 04/10/17 at 15:00 Fluconazole (Diflucan) 200 mg DAILY PO Last administered on 04/11/17 08:12; Admin Dose 200 MG; Start 04/11/17 at 09:00 Clotrimazole (Lotrimin Cr) 1 applic BID TOP Last administered on 04/11/17 08: 04; Admin Dose 1 APPLIC; Start 04/10/17 at 21:00 Gentamicin Sulfate (Gentamicin 0.1% Oint) 1 applic BID TOP Last administered on 04/11/17 08:04; Admin Dose 1 APPLIC; Start 04/10/17 at 21:00 Sodium Hypochlorite (Dakin'S (Dilute 1/40%)) 1 applic BID IRR Last administered on 04/11/17 08:04; Admin Dose 1 APPLIC; Start 04/10/17 at 21:00 Miscellaneous Information (*Rx Drug Level Order Reminder*) VANCOMYCIN TROUGH AT 1999 ONCE ONCE XX ; Start 04/11/17 at 20:00; Stop 04/11/17 at 20:01 KEAGAN MCDONALD MD Apr 11, 2017 14:03
--- NOTE | 2017-04-11 14:42 | PN ---
Date/Time of Note Date/Time of Note DATE: 04/11/17 TIME: 14:35 Assessment/Plan VTE Prophylaxis VTE Prophylaxis Intervention: SCD's Lines/Catheters IV Catheter Type (from Nrs): PICC Line Central line still needed: No Assessment/Plan Chief Complaint/Hosp Course Right foot infected diabetic foot ulceration Cellulitis/ abscess right foot Prior metatarsal fracture DM2 with neuropathy/ poor glycemic control Delayed wound healing Failed outpatient treatment Problems: Assessment/Plan Right foot diabetic foot ulceration Cellulitis right foot s/p debridement DM2 poorly controlled Improved appearance. Cont BID wound care. Improved status. Remain NWB right foot. Further recs once C&S obtained. Subjective 24 Hr Interval Summary Free Text/Dictation F/u right foot infected DFU/ abscess s/p debridement. Culture prelim polymicrobial. Less pain reported. Dressings changed. Denies f/n/v. Constitutional: no complaints Eyes: no complaints Respiratory: no complaints Skin: other (Right foot ulceration plantar aspect sub 4th MPJ extending to toe. Malodor persists. Decreased erythema/ edema. ) Neurologic: other (absent protective sensation) Exam/Review of Systems Vital Signs Vitals Vital Signs Date Time Temp Pulse Resp B/P Pulse Ox O2 Delivery O2 Flow Rate FiO2 04/11/17 07:27 98.9 61 20 172/81 97 04/10/17 05:00 Room Air Intake and Output 04/10/17 04/10/17 04/11/17 15:00 23:00 07:00 Intake Total 550 ml 610 ml Output Total 300 ml Balance 550 ml 310 ml Results Result Diagram: 04/11/17 0455 04/11/17 0455 Results 24 hrs Laboratory Tests Test 04/10/17 17:17 04/10/17 21:38 04/11/17 04:55 04/11/17 08:01 Bedside Glucose 189 160 336 H White Blood Count 7.9 Red Blood Count 4.49 L Hemoglobin 13.3 L Hematocrit 38.0 L Mean Corpuscular Volume 84.6 Mean Corpuscular Hemoglobin 29.6 Mean Corpuscular Hemoglobin Concent 35.0 Red Cell Distribution Width 12.3 Platelet Count 220 Mean Platelet Volume 9.5 Neutrophils % 55.0 Lymphocytes % 33.5 Monocytes % 7.5 Eosinophils % 2.8 Basophils % 0.9 Nucleated Red Blood Cells % 0.0 Neutrophils # 4.3 Lymphocytes # 2.6 Monocytes # 0.6 Eosinophils # 0.2 Basophils # 0.1 Nucleated Red Blood Cells # 0.0 Sodium Level 133 L Potassium Level 4.0 Chloride Level 104 Carbon Dioxide Level 27 Anion Gap 6 L Blood Urea Nitrogen 15 Creatinine 0.50 L Glucose Level 298 H Calcium Level 8.4 Phosphorus Level 2.7 Magnesium Level 1.6 L Test 04/11/17 12:13 Bedside Glucose 154 Medications Medications Current Medications Ondansetron HCl (Zofran Inj) 4 mg Q6H PRN IV NAUSEA AND/OR VOMITING; Start 04/10 at 02:30 Acetaminophen (Tylenol Tab) 650 mg Q6H PRN PO PAIN LEVEL 1-3 OR FEVER; Start at 02:30 Morphine Sulfate (morphine) 2 mg Q4H PRN IV SEVERE PAIN LEVEL 7-10 Last administered on 04/10/17 14:58; Admin Dose 2 MG; Start 04/10/17 at 02:30 Docusate Sodium (Colace) 100 mg Q12H PRN PO CONSTIPATION; Start 04/10/17 at 02: 30 Bisacodyl (Dulcolax) 5 mg DAILY PRN PO CONSTIPATION; Start 04/10/17 at 02:30 Enoxaparin Sodium (Lovenox) 40 mg DAILY SC Last administered on 04/11/17 08:16 ; Admin Dose 40 MG; Start 04/10/17 at 09:00 Aspirin (Aspirin) 81 mg DAILY PO Last administered on 04/11/17 08:02; Admin Dose 81 MG; Start 04/10/17 at 09:00 Benazepril HCl (Lotensin) 10 mg DAILY PO Last administered on 04/11/17 08:03; Admin Dose 10 MG; Start 04/10/17 at 09:00 Quetiapine Fumarate 200 mg 200 mg DAILY PO Last administered on 04/11/17 08:03 ; Admin Dose 200 MG; Start 04/10/17 at 09:00 Vancomycin HCl/ Sodium Chloride (Vancocin/NS) 250 ml @ 83.333 mls/ hr Q12H IVPB Last administered on 04/11/17 08:06; Admin Dose 83.333 MLS/HR; Start 04/10 at 09:00 Diagnostic Test (Pha) (Accu-Chek) 1 ea 02 XX ; Start 04/11/17 at 02:00 Miscellaneous Information 1 ea NOTE XX ; Start 04/10/17 at 06:00 Glucose (Glutose) 15 gm Q15M PRN PO DECREASED GLUCOSE; Start 04/10/17 at 06:00 Glucose (Glutose) 22.5 gm Q15M PRN PO DECREASED GLUCOSE; Start 04/10/17 at 06:00 Dextrose (D50w Syringe) 25 ml Q15M PRN IV DECREASED GLUCOSE; Start 04/10/17 at 06:00 Dextrose (D50w Syringe) 50 ml Q15M PRN IV DECREASED GLUCOSE; Start 04/10/17 at 06:00 Glucagon (Glucagen) 1 mg Q15M PRN IM DECREASED GLUCOSE; Start 04/10/17 at 06:00 Glucose (Glutose) 15 gm Q15M PRN BUCCAL DECREASED GLUCOSE; Start 04/10/17 at 06: 00 Nicotine (Nicoderm 14 Mg/ 24hr) 1 patch DAILY TRANSDERM ; Start 04/10/17 at 09:00 [place] Carbonate ([place] Carbonate) 300 mg BID PO Last administered on 08:03; Admin Dose 300 MG; Start 04/10/17 at 09:00 Olanzapine (Zyprexa) 15 mg DAILY PO Last administered on 04/11/17 08:02; Admin Dose 15 MG; Start 04/10/17 at 09:00 Sertraline HCl (Zoloft) 200 mg DAILY PO Last administered on 04/11/17 08:03; Admin Dose 200 MG; Start 04/10/17 at 09:00 Insulin Detemir (Levemir) 30 unit BID SC Last administered on 04/11/17 08:10; Admin Dose 30 UNIT; Start 04/10/17 at 10:30 IV Flush 10 ml 10 ml PRN PRN IV IV PROTOCOL; Start 04/10/17 at 14:30 Piperacillin Sod/ Tazobactam Sod (Zosyn 3.375gm/ 100 ml (Pmx)) 100 ml @ 200 mls /hr Q8 IVPB Last administered on 04/11/17 14:18; Admin Dose 200 MLS/HR; Start 04/10/17 at 15:00 Fluconazole (Diflucan) 200 mg DAILY PO Last administered on 04/11/17 08:12; Admin Dose 200 MG; Start 04/11/17 at 09:00 Clotrimazole (Lotrimin Cr) 1 applic BID TOP Last administered on 04/11/17 08: 04; Admin Dose 1 APPLIC; Start 04/10/17 at 21:00 Gentamicin Sulfate (Gentamicin 0.1% Oint) 1 applic BID TOP Last administered on 04/11/17 08:04; Admin Dose 1 APPLIC; Start 04/10/17 at 21:00 Sodium Hypochlorite (Dakin'S (Dilute 1/40%)) 1 applic BID IRR Last administered on 04/11/17 08:04; Admin Dose 1 APPLIC; Start 04/10/17 at 21:00 Miscellaneous Information (*Rx Drug Level Order Reminder*) VANCOMYCIN TROUGH AT 2000 ONCE ONCE XX ; Start 04/11/17 at 20:00; Stop 04/11/17 at 20:01 ARON MORALEZ DPM Apr 11, 2017 14:42
[2017-04-11 19:22] VITALS: BP 157/76; RESP 18
[2017-04-11] MEDS: morphine 2 MG INJ IV PRN (20:22)
[2017-04-12] MEDS: ACCU-CHEK XX SCH (01:16)
[2017-04-12 01:52] VITALS: BP 159/71; RESP 18
[2017-04-12] MEDS: PIPER-TAZO 3.375 GM IV (PMX) 100 ML IVPB SCH ×3 (05:10→23:33)
[2017-04-12] MEDS: VANCOMYCIN 1.25 GM in SOD CHLORIDE 0.9% 250 ML IVPB SCH ×3 (05:45→20:35)
[2017-04-12 05:46] LABS: ADD SCAN DIFF NO
[2017-04-12 05:56] LABS: BASOPHIL # 0.1 10^3/ul (0.0-0.1); BASOPHILS % 0.6 % (0.0-2.0); EOSINOPHILS # 0.2 10^3/ul (0.0-0.5); EOSINOPHILS % 2.2 % (0.0-7.0); HEMATOCRIT 38.1 % (42.0-52.0); HEMOGLOBIN 13.3 g/dl (14.0-18.0); LYMPHOCYTES % 38.4 % (15.0-51.0); MEAN CORPUSCULAR HEMOGLOBIN 29.9 pg (29.0-33.0); MEAN CORPUSCULAR HGB CONC 34.9 g/dl (32.0-37.0); MEAN CORPUSCULAR VOLUME 85.6 fl (82.0-101.0); MEAN PLATELET VOLUME 9.4 fl (7.4-10.4); MONOCYTE # 0.7 10^3/ul (0.3-0.9); MONOCYTES % 8.5 % (0.0-11.0); NEUTROPHIL # 3.9 10^3/ul (1.6-7.5); NEUTROPHILS % 49.7 % (39.0-77.0); PLATELET COUNT 249 10^3/UL (140-415); RED BLOOD COUNT 4.45 10^6/ul (4.70-6.10); RED CELL DISTRIBUTION WIDTH 11.9 % (11.5-14.5); WHITE BLOOD COUNT 7.9 10^3/ul (4.8-10.8)
[2017-04-12 06:28] LABS: POTASSIUM 3.8 mmol/L (3.5-5.1)
[2017-04-12 06:44] LABS: CALCIUM 8.5 mg/dl (8.4-10.2); CREATININE 0.58 mg/dl (0.61-1.24)
[2017-04-12 07:25] VITALS: BP 175/88; RESP 18
[2017-04-12] MEDS: INSULIN DETEMIR [LEVEMIR] 3ML CART SC SCH ×2 (08:25→20:34)
[2017-04-12] MEDS: INSULIN ASPART [NOVOLOG] 3 ML PEN SC SCH ×4 (08:25→20:34)
[2017-04-12] MEDS: LITHIUM CARBONATE 300 MG CAP PO SCH ×2 (08:26→20:32)
[2017-04-12] MEDS: OLANZAPINE 5 MG TAB PO SCH (08:27)
[2017-04-12] MEDS: QUETIAPINE 100 MG TAB PO SCH (08:27)
[2017-04-12] MEDS: FLUCONAZOLE 200 MG TAB PO SCH (08:28)
[2017-04-12] MEDS: ASPIRIN 81 MG TAB PO SCH (08:28)
[2017-04-12] MEDS: SERTRALINE 100 MG TAB PO SCH (08:28)
[2017-04-12] MEDS: BENAZEPRIL 10 MG TAB PO SCH (08:29)
[2017-04-12] MEDS: SODIUM HYPOCHLORITE 1/40% 1L IRRIG IRR SCH ×2 (08:35→21:00)
[2017-04-12] MEDS: GENTAMICIN 0.1% 15 GM OINT TOP SCH ×2 (08:35→20:37)
[2017-04-12] MEDS: NICOTINE (14 MG/24 HR) PATCH TRANSDERM SCH (08:36)
[2017-04-12] MEDS: CLOTRIMAZOLE 1% 30 GM CR TOP SCH ×2 (08:36→20:37)
[2017-04-12] MEDS: ENOXAPARIN 40 MG/0.4 ML SYG SC SCH (08:51)
[2017-04-12] MEDS: morphine 2 MG INJ IV PRN ×2 (09:09→18:17)
--- NOTE | 2017-04-12 15:32 | PN ---
Date/Time of Note Date/Time of Note DATE: 04/12/17 TIME: 15:31 Assessment/Plan VTE Prophylaxis VTE Prophylaxis Intervention: SCD's Lines/Catheters IV Catheter Type (from Nrsg): PICC Line Central line still needed: No Assessment/Plan Assessment/Plan 51 yo M with mental illness, very poorly controlled DM2 admitted for diabetic foot infection with abscess, sp I&D 7.10 DFI: no OM on imaging, continue vanc zosyn pending further culture data as abscess has been I&D'd, suspect pt will only need an additional 5-7 days of abx post intervention, possibly PO abx pending culture results (levo/bactrim) DM2: cont SSI and long acting insulin CM cs for HH for wound care and home nurse to help with DM control DM diet SCDs Subjective 24 Hr Interval Summary Free Text/Dictation Pt feels well. Seen and cleared by PT. Exam/Review of Systems Vital Signs Vitals Vital Signs Date Time Temp Pulse Resp B/P Pulse Ox O2 Delivery O2 Flow Rate FiO2 04/12/17 07:25 98.2 60 18 175/88 97 04/10/17 05:00 Room Air Intake and Output 04/11/17 04/11/17 04/12/17 15:00 23:00 07:00 Intake Total 100 ml 1510 ml 1130 ml Output Total 1100 ml Balance 100 ml 410 ml 1130 ml Exam nad, laying in bed no mrg lungs clear abd soft foot wrapped wound culture reviewed. pathogens ID'd. sensitivities pending Results Result Diagram: 04/12/17 0500 04/12/17 0500 Results 24 hrs Laboratory Tests Test 04/11/17 17:11 04/11/17 20:14 04/11/17 20:15 04/12/17 05:00 Bedside Glucose 162 172 Vancomycin Level Trough 7.3 L White Blood Count 7.9 Red Blood Count 4.45 L Hemoglobin 13.3 L Hematocrit 38.1 L Mean Corpuscular Volume 85.6 Mean Corpuscular Hemoglobin 29.9 Mean Corpuscular Hemoglobin Concent 34.9 Red Cell Distribution Width 11.9 Platelet Count 249 Mean Platelet Volume 9.4 Neutrophils % 49.7 Lymphocytes % 38.4 Monocytes % 8.5 Eosinophils % 2.2 Basophils % 0.6 Nucleated Red Blood Cells % 0.0 Neutrophils # 3.9 Lymphocytes # 3.0 H Monocytes # 0.7 Eosinophils # 0.2 Basophils # 0.1 Nucleated Red Blood Cells # 0.0 Sodium Level 134 L Potassium Level 3.8 Chloride Level 106 Carbon Dioxide Level 28 Anion Gap 4 L Blood Urea Nitrogen 14 Creatinine 0.58 L Glucose Level 262 H Calcium Level 8.5 Test 04/12/17 07:58 04/12/17 11:58 Bedside Glucose 198 211 Medications Medications Current Medications Ondansetron HCl (Zofran Inj) 4 mg Q6H PRN IV NAUSEA AND/OR VOMITING; Start 04/10 at 02:30 Acetaminophen (Tylenol Tab) 650 mg Q6H PRN PO PAIN LEVEL 1-3 OR FEVER; Start at 02:30 Morphine Sulfate (morphine) 2 mg Q4H PRN IV SEVERE PAIN LEVEL 7-10 Last administered on 04/12/17 09:09; Admin Dose 2 MG; Start 04/10/17 at 02:30 Docusate Sodium (Colace) 100 mg Q12H PRN PO CONSTIPATION; Start 04/10/17 at 02: 30 Bisacodyl (Dulcolax) 5 mg DAILY PRN PO CONSTIPATION; Start 04/10/17 at 02:30 Enoxaparin Sodium (Lovenox) 40 mg DAILY SC Last administered on 04/12/17 08:51 ; Admin Dose 40 MG; Start 04/10/17 at 09:00 Aspirin (Aspirin) 81 mg DAILY PO Last administered on 04/12/17 08:28; Admin Dose 81 MG; Start 04/10/17 at 09:00 Benazepril HCl (Lotensin) 10 mg DAILY PO Last administered on 04/12/17 08:29; Admin Dose 10 MG; Start 04/10/17 at 09:00 Quetiapine Fumarate (Seroquel) 200 mg DAILY PO Last administered on 04/12/17 08:27; Admin Dose 200 MG; Start 04/10/17 at 09:00 Diagnostic Test (Pha) (Accu-Chek) 1 ea 02 XX ; Start 04/11/17 at 02:00 Miscellaneous Information 1 ea NOTE XX ; Start 04/10/17 at 06:00 Glucose (Glutose) 15 gm Q15M PRN PO DECREASED GLUCOSE; Start 04/10/17 at 06:00 Glucose (Glutose) 22.5 gm Q15M PRN PO DECREASED GLUCOSE; Start 04/10/17 at 06:00 Dextrose (D50w Syringe) 25 ml Q15M PRN IV DECREASED GLUCOSE; Start 04/10/17 at 06:00 Dextrose (D50w Syringe) 50 ml Q15M PRN IV DECREASED GLUCOSE; Start 04/10/17 at 06:00 Glucagon (Glucagen) 1 mg Q15M PRN IM DECREASED GLUCOSE; Start 04/10/17 at 06:00 Glucose (Glutose) 15 gm Q15M PRN BUCCAL DECREASED GLUCOSE; Start 04/10/17 at 06: 00 Nicotine (Nicoderm 14 Mg/ 24hr) 1 patch DAILY TRANSDERM ; Start 04/10/17 at 09:00 [place] Carbonate ([place] Carbonate) 300 mg BID PO Last administered on 08:26; Admin Dose 300 MG; Start 04/10/17 at 09:00 Olanzapine (Zyprexa) 15 mg DAILY PO Last administered on 04/12/17 08:27; Admin Dose 15 MG; Start 04/10/17 at 09:00 Sertraline HCl (Zoloft) 200 mg DAILY PO Last administered on 04/12/17 08:28; Admin Dose 200 MG; Start 04/10/17 at 09:00 Insulin Detemir (Levemir) 30 unit BID SC Last administered on 04/12/17 08:25; Admin Dose 30 UNIT; Start 04/10/17 at 10:30 IV Flush 10 ml 10 ml PRN PRN IV IV PROTOCOL; Start 04/10/17 at 14:30 Piperacillin Sod/ Tazobactam Sod (Zosyn 3.375gm/ 100 ml (Pmx)) 100 ml @ 200 mls /hr Q8 IVPB Last administered on 04/12/17 15:09; Admin Dose 200 MLS/HR; Start 04/10/17 at 15:00 Fluconazole (Diflucan) 200 mg DAILY PO Last administered on 04/12/17 08:28; Admin Dose 200 MG; Start 04/11/17 at 09:00 Clotrimazole (Lotrimin Cr) 1 applic BID TOP Last administered on 04/12/17 08: 36; Admin Dose 1 APPLIC; Start 04/10/17 at 21:00 Gentamicin Sulfate (Gentamicin 0.1% Oint) 1 applic BID TOP Last administered on 04/12/17 08:35; Admin Dose 1 APPLIC; Start 04/10/17 at 21:00 Sodium Hypochlorite 1 applic 1 applic BID IRR Last administered on 04/12/17 08 :35; Admin Dose 1 APPLIC; Start 04/10/17 at 21:00 Vancomycin HCl/ Sodium Chloride (Vancocin/NS) 250 ml @ 83.333 mls/ hr Q8H IVPB Last administered on 04/12/17 12:00; Admin Dose 83.333 MLS/HR; Start at 05:00 Miscellaneous Information (*Rx Drug Level Order Reminder*) 1 ONCE ONCE XX ; Start 04/13/17 at 04:00; Stop 04/13/17 at 04:01 KEAGAN MCDONALD MD Apr 12, 2017 15:32
[2017-04-12 19:23] VITALS: BP 189/90; RESP 20
[2017-04-12] MEDS: hydrALAzine 20 MG INJ IV PRN (22:00)
[2017-04-13] MEDS: ACCU-CHEK XX SCH (02:00)
[2017-04-13 04:10] LABS: ADD SCAN DIFF NO
[2017-04-13 04:19] LABS: BASOPHIL # 0.1 10^3/ul (0.0-0.1); BASOPHILS % 0.8 % (0.0-2.0); EOSINOPHILS # 0.2 10^3/ul (0.0-0.5); EOSINOPHILS % 2.3 % (0.0-7.0); HEMATOCRIT 38.1 % (42.0-52.0); HEMOGLOBIN 13.3 g/dl (14.0-18.0); LYMPHOCYTES # 3.1 10^3/ul (0.8-2.9); LYMPHOCYTES % 32.6 % (15.0-51.0); MEAN CORPUSCULAR HEMOGLOBIN 29.5 pg (29.0-33.0); MEAN CORPUSCULAR HGB CONC 34.9 g/dl (32.0-37.0); MEAN CORPUSCULAR VOLUME 84.5 fl (82.0-101.0); MEAN PLATELET VOLUME 9.1 fl (7.4-10.4); MONOCYTE # 0.6 10^3/ul (0.3-0.9); MONOCYTES % 6.8 % (0.0-11.0); NEUTROPHIL # 5.4 10^3/ul (1.6-7.5); NEUTROPHILS % 56.7 % (39.0-77.0); PLATELET COUNT 269 10^3/UL (140-415); RED BLOOD COUNT 4.51 10^6/ul (4.70-6.10); RED CELL DISTRIBUTION WIDTH 12.2 % (11.5-14.5); WHITE BLOOD COUNT 9.5 10^3/ul (4.8-10.8)
[2017-04-13 04:33] LABS: CALCIUM 8.9 mg/dl (8.4-10.2); CREATININE 0.61 mg/dl (0.61-1.24); POTASSIUM 3.4 mmol/L (3.5-5.1)
[2017-04-13] MEDS: PIPER-TAZO 3.375 GM IV (PMX) 100 ML IVPB SCH (05:21)
[2017-04-13] MEDS: hydrALAzine 20 MG INJ IV PRN (05:22)
[2017-04-13] MEDS: VANCOMYCIN 1.25 GM in SOD CHLORIDE 0.9% 250 ML IVPB SCH (06:01)
[2017-04-13] MEDS: ACETAMINOPHEN 325 MG TAB PO PRN ×2 (06:05→12:20)
[2017-04-13] MEDS: SODIUM HYPOCHLORITE 1/40% 1L IRRIG IRR SCH ×2 (06:06→08:25)
[2017-04-13] MEDS: GENTAMICIN 0.1% 15 GM OINT TOP SCH ×2 (06:07→08:24)
[2017-04-13] MEDS ORDERED: hydrALAzine 20 MG INJ IV ONE (07:00)
[2017-04-13 07:21] VITALS: BP 145/77; RESP 18
[2017-04-13] MEDS: INSULIN ASPART [NOVOLOG] 3 ML PEN SC SCH ×2 (08:07→12:15)
[2017-04-13] MEDS: FLUCONAZOLE 200 MG TAB PO SCH (08:22)
[2017-04-13] MEDS: QUETIAPINE 100 MG TAB PO SCH (08:22)
[2017-04-13] MEDS: SERTRALINE 100 MG TAB PO SCH (08:22)
[2017-04-13] MEDS: OLANZAPINE 5 MG TAB PO SCH (08:23)
[2017-04-13] MEDS: LITHIUM CARBONATE 300 MG CAP PO SCH (08:23)
[2017-04-13] MEDS: ASPIRIN 81 MG TAB PO SCH (08:23)
[2017-04-13] MEDS: BENAZEPRIL 10 MG TAB PO SCH (08:24)
[2017-04-13] MEDS: NICOTINE (14 MG/24 HR) PATCH TRANSDERM SCH (08:24)
[2017-04-13] MEDS: CLOTRIMAZOLE 1% 30 GM CR TOP SCH (08:24)
[2017-04-13] MEDS: INSULIN DETEMIR [LEVEMIR] 3ML CART SC SCH (08:26)
[2017-04-13] MEDS: ENOXAPARIN 40 MG/0.4 ML SYG SC SCH (08:31)
--- NOTE | 2017-04-13 10:35 | PDOCDIS ---
Discharge Instructions CONDITION Patient Condition: Good HOME CARE INSTRUCTIONS: Special Diet: Carbohydrate Controlled Diet ACTIVITY: Activity Restrictions: Weight Bearing (no weight bearing on R foot) FOLLOW UP/APPOINTMENTS Follow-up Plan Call Dr Lopez this week to set up a follow up within the next week Office Address [address] [place] [id number] Office KEAGAN MCDONALD MD Apr 13, 2017 10:35
[2017-04-13] MEDS ORDERED: CLO15CR1 TOP (10:37)
[2017-04-13] MEDS ORDERED: CIPR-193 PO (10:37)
[2017-04-13] MEDS ORDERED: INSU100I27 SC (10:37)
[2017-04-13] MEDS ORDERED: Nicotine (14 Mg/24 Hr) TRANSDERM (10:37)
--- NOTE | 2017-04-13 10:39 | PDOCDIS ---
Discharge Instructions CONDITION Patient Condition: Good HOME CARE INSTRUCTIONS: Special Diet: Carbohydrate Controlled Diet ACTIVITY: Activity Restrictions: Weight Bearing (no weight bearing on R foot) FOLLOW UP/APPOINTMENTS Follow-up Plan Follow up with your regular doctor this week to discuss your diabetes Follow up with the foot doctor within 1 week: Dr Lopez Office Address [address] [place] [id number] Office KEAGAN MCDONALD MD Apr 13, 2017 10:38
--- NOTE | 2017-04-13 10:42 | DS ---
Date/Time of Note Date/Time of Note DATE: 04/13/17 TIME: 10:40 Discharge Summary Admission/Discharge Info Admit Date/Time Apr 10, 2017 at 00:47 Discharge Date/Time Patient Condition: Good Consults podiatry Procedures R foot XR 7.8 IMPRESSION: 1. No evidence of osteomyelitis involving the right foot. 2. Callus formation about an old healed right third metatarsal fracture. 3. Some periosteal reaction adjacent to the second proximal phalanx may be the sequela of prior injury. R foot abscess I&D 7.9 Operation/Procedure Performed Right foot incision and drainage of abscess 5th toe/ irrigation Right foot excisional debridement of ulceration skin/ subcut/ fascia 3 x 1 cm with cultures MICRO: abscess culture: CONS and Corynebacterium both S to cipro a1c 13.7 Hx of Present Illness Right foot infected diabetic ulceration. Present for several months. Worsen recently. Pt failed outpatient abx and wound care. Pt with poorly controlled DM. Has pain to right foot. Had general malaise. Hospital Course Foot wound I&D'd by podiatry 7.9. Pt maintained on broad spectrum abx until wound cultures were finalized 7.12 and all pathogens returned S to cipro. Regarding pt's DM2, hemogolobin a1c 13s. Pt stated he was not regularly taking insulin prior to admission. Basal insulin uptitrated to 35 units BID. Pt discharged on basal insulin and his PO meds. Pt to f/u with PCP for further DM management. Pt discharged with wound care for diabetic foot infection and pt to f/u with podiatry within 1 week. Home Meds Active Scripts Clotrimazole (Clotrim) 15 Gm Cr, 1 APPLIC TOP BID for 14 Days, #1 TUB Prov:KEAGAN MCDONALD MD 04/13/17 Insulin Detemir (Levemir Flextouch) 100 Unit/1 Ml Insuln.pen, 35 UNIT SC BID for 14 Days, #1 VIAL Prov:KEAGAN MCDONALD MD 04/13/17 [Nicotine (14 Mg/24 Hr)] 1 PATCH PATCH No Conflict Check, 1 PATCH TRANSDERM DAILY for 14 Days, #14 Prov:KEAGAN MCDONALD MD 04/13/17 Ciprofloxacin Hcl* (Ciprofloxacin Hcl*) 250 Mg Tablet, 750 MG PO BID@06,18 for 10 Days, #20 TAB Prov:KEAGAN MCDONALD MD 04/13/17 Reported Medications Sertraline Hcl* (Zoloft*) 100 Mg Tablet, 200 MG PO DAILY, #60 TAB 04/10/17 Olanzapine* (Zyprexa*) 15 Mg Tablet, 15 MG PO DAILY, #30 TAB 04/10/17 [place] Carbonate* ([place]*) 300 Mg Cap, 300 MG PO BID, CAP 04/10/17 Metformin Hcl* (Metformin Hcl*) 1,000 Mg Tablet, 1000 MG PO WITH BREAKFAST DINNE , #30 TAB 04/10/17 [Levemir] No Conflict Check, 60 UNIT SC BID 04/10/17 Sertraline Hcl* (Zoloft*) 100 Mg Tablet 07/29/10 Divalproex Sodium (Depakote) 500 Mg Tablet. 07/29/10 Quetiapine Fumarate* (Seroquel*) 200 Mg Tablet 07/29/10 Olanzapine* (Zyprexa*) 15 Mg Tablet 07/29/10 Aspirin (Aspirin) 81 Mg Tablet 07/29/10 Pioglitazone Hcl* (Actos*) 30 Mg Tablet 07/29/10 Metformin Hcl* (Metformin Hcl*) 1,000 Mg Tablet 07/29/10 Insulin Detemir* (Levemir*) 100 U/Ml Vial 07/29/10 Benazepril Hcl* (Lotensin*) 10 Mg Tablet 07/29/10 Insulin Lispro (Humalog) 100 U/Ml Vial 07/29/10 Niacin* (Niaspan*) 500 Mg Tablet.sa 07/29/10 Follow-up Plan podiatry, PCP Primary Care Provider Linn Rodriguez Pending Labs Laboratory Tests Test 04/12/17 11:58 04/12/17 17:38 04/12/17 20:31 04/13/17 03:51 Bedside Glucose 211mg/dL (70-220) 154mg/dL (70-220) 175mg/dL (70-220) White Blood Count 9.510^3/ul (4.8-10.8) Red Blood Count 4.5110^6/ul (4.70-6.10) Hemoglobin 13.3g/dl (14.0-18.0) Hematocrit 38.1% (42.0-52.0) Mean Corpuscular Volume 84.5fl (82.0-101.0) Mean Corpuscular Hemoglobin 29.5pg (29.0-33.0) Mean Corpuscular Hemoglobin Concent 34.9g/dl (32.0-37.0) Red Cell Distribution Width 12.2% (11.5-14.5) Platelet Count 26514^3/UL (140-415) Mean Platelet Volume 9.1fl (7.4-10.4) Neutrophils % 56.7% (39.0-77.0) Lymphocytes % 32.6% (15.0-51.0) Monocytes % 6.8% (0.0-11.0) Eosinophils % 2.3% (0.0-7.0) Basophils % 0.8% (0.0-2.0) Nucleated Red Blood Cells % 0.0/100WBC (0.0-0.0) Neutrophils # 5.410^3/ul (1.6-7.5) Lymphocytes # 3.110^3/ul (0.8-2.9) Monocytes # 0.610^3/ul (0.3-0.9) Eosinophils # 0.210^3/ul (0.0-0.5) Basophils # 0.110^3/ul (0.0-0.1) Nucleated Red Blood Cells # 0.010^3/ul (0.0-0.0) Sodium Level 138mmol/L (135-144) Potassium Level 3.4mmol/L (3.5-5.1) Chloride Level 105mmol/L (97-110) Carbon Dioxide Level 28mmol/L (21-31) Anion Gap 8 (8-16) Blood Urea Nitrogen 14mg/dl (7-20) Creatinine 0.61mg/dl (0.61-1.24) Glucose Level 176mg/dl (70-220) Calcium Level 8.9mg/dl (8.4-10.2) Vancomycin Level Trough 10.7ug/ml (10.0-20.0) Test 04/13/17 07:55 Bedside Glucose 117mg/dL (70-220) KEAGAN MCDONALD MD Apr 13, 2017 10:41
[2017-04-13] MEDS ORDERED: CIPROFLOXACIN 250 MG TAB PO SCH (18:00)
== END 2017-04-13 14:20 | disposition home health service (06) | DRG 623 ==
LOC: E/R 20:47 → MS2 04-10 00:47
PROVIDERS: ADMIT Family Medicine; ATTEND Family Medicine
PROC: 0JBQ0ZZ Excision of Right Foot Subcutaneous Tissue and Fascia, Open Approach (ICD-10-PCS; principal; 2017-04-10)
PROC: 02H633Z Insertion of Infusion Device into Right Atrium, Percutaneous Approach (ICD-10-PCS; 2017-04-10)
PROC: 0H9MXZX Drainage of Right Foot Skin, External Approach, Diagnostic (ICD-10-PCS; 2017-04-10)
DX: E11.621 Type 2 diabetes mellitus with foot ulcer (principal); L02.611 Cutaneous abscess of right foot; L03.115 Cellulitis of right lower limb; E11.40 Type 2 diabetes mellitus with diabetic neuropathy, unspecified; L84 Corns and callosities; E11.65 Type 2 diabetes mellitus with hyperglycemia; F31.9 Bipolar disorder, unspecified; I10 Essential (primary) hypertension; E11.628 Type 2 diabetes mellitus with other skin complications; S62.614D Displaced fracture of proximal phalanx of right ring finger, subsequent encounter for fracture with routine healing; Z79.4 Long term (current) use of insulin; Z87.81 Personal history of (healed) traumatic fracture
CPT/HCPCS: 36415; 36569; 71010; 73630; 76937; 80048; 80053; 80061; 80164; 80202; 82962; 83036; 83735; 84100; 84443; 85025; 87070; 96374; 96375; 97161; C9113; J0360; J1650; J1815; J1885; J2270; J2543; J3370; J3475; J7030; J7050

== ENCOUNTER 2017-04-18 14:42 | Outpatient (CLI) | payer OTHER ==
[~2017-04-18] VITALS: Ht 182.9 cm; Wt 96.4 kg
[~2017-04-18 14:42] MED LIST changes: +CIPR-193 PO; +CLO15CR1 TOP; +INSU100I27 SC; -INSU100V18; -LEVEM; +LIT300 PO; +METF1000 PO; +Nicotine (14 Mg/24 Hr) TRANSDERM; +OLAN15TA3 PO; +SERT100T PO
[2017-04-18 14:56] VITALS: Ht 182.9 cm; Wt 96.4 kg
[2017-04-18 14:57] VITALS: BP 171/79; PULSE 100; RESP 16
--- NOTE | 2017-04-18 16:09 | PN ---
Date/Time of Note Date/Time of Note DATE: 04/18/17 TIME: 16:04 Outpatient Progress Note Chief Complaint Cellulitis/diabetes/hypertension/depression HPI Cellulitis/patient has cellulitis of right foot, no fever chill, no bleeding or discharge, patient dressing being changed by nurse every other day, slightly better, Diabetes/no polydipsia poly-hypoglycemia, gastroparesis, Hypertension/no headache or dizziness or lightheadedness, patient blood pressure slightly elevated, Depression/patient slightly depressed, patient has multiple medication, no suicidal, Review of Systems Const: No Fever, no chills, no Wt. loss, no Fatigue, normal appetite, no diaphoresis. Eyes: No pain, no discharge, no redness, no visual change, no foreign body. ENT: No pain, no bleeding, no congestion, no sore throat, no dysphagia, no discharge or rhinitis. Lymph: No adenopathy, no tender nodes, no lymphedema. Resp: No SOB, no cough, no sputum, no wheezing, no chest pain. CV: No chest pain, no palpitaions, no GARCIA, no PND, no edema. GI: Normal appetite, no pain, no nausea, no vomiting, no diarrhea, no blood, no constipation. : No frequency, no urgency, no dysuria, no hematuria, no flank pain, no discharge, no bleeding. Musc: no back pain, no neck pain, no knee pain, no restricted ROM. Skin: No rash, no skin lesions, no erythema, no laceration, no bruising, no pruritus. Right foot cellulitis, Neuro: No MARSHALL, no dizziness, no syncope, no seizure, no focal-weakness. Endo: No polyuria, no polydypsia, no dry-skin, no temp-intolerance. Psych: No hallucinations, no depression, no anxiety, no suicidal ideation. Ext: No edema, no pain, no ulcer, no weakness. Right foot cellulitis, Physical Exam Vital Signs Date Time Temp Pulse Resp B/P Pulse Ox O2 Delivery O2 Flow Rate FiO2 04/18/17 14:57 97.7 100 16 171/79 95 Room Air General Appearance: A 51 year-old male who appears well-developed, well- nourished, in no acute distress. HEENT: Head normocephalic, atraumatic. Pupils equal, round, reactive to light and accommodate. Sclerae are no jaundice. Nasal turbinates pink without erythema or nasal discharge. Mucous membranes pink and moist without lesions. Oropharynx clear without any exudate or discharge. NECK: Supple. Trachea midline, No thyromegaly, No cervical lymphadenopathy, No mass, No carotid bruits, No JVD, Carotid pulses 2+ bilaterally. PULMONARY: Clear to auscultaion bilaterally, No retractions, Chest expansion symmetric bilaterally, no rales, no ronchi, no dulness on percussion. CARDIAC: Normal SI and S2, Regular rate and rythm, no murmur, gallop, or rub. GASTROINTESTINAL: Abdomen is soft, non-tender, Non Rigid, No distention, Positive bowel sounds x4 quadrants, Liver normal. SKIN: Warm, dry, no rash, no bruise, no echmosis. Right foot cellulitis, EXTREMITIES: Bilateral lower extremities no edema, no phlabitus, pulse palpable , no contracture right foot cellulitis,. MUSCULOSKELETAL: Spine Normal, Non-tender, Normal range of motion, No swelling, no deformity, no clubbing, or cyanosis, the patient has no edema to bilateral lower extremities, dorsalis pedis pulses palpable bilaterally. NEUROLOGIC: The patient is awake, alert, oriented, responding to yes/no questions appropriately, moving all extremities, cranial nerve intact, normal strenght, normal power, normal coordination, normal gait. Allergies Coded Allergies: No Known Drug Allergies (Verified Allergy, Mild, 07/24/14) PMH Cellulitis/diabetes/hypertension/depression Ankle surgery and right jaw surgery Social Hx Everyday smoker, for 40 years Family Hx brother has hypertension, Assessment/Plan Impression Cellulitis/diabetes/hypertension/depression, Plan Patient has cellulitis, patient was recently hospitalized, patient still on medication, patient gradually doing better, Patient blood sugar under control according to patient except for last few days , patient is eating doughnut and not following the diet, discussed with the patient and diabetic education done, Patient blood pressure slightly elevated, discussed with the patient, will increase benazepril to 20 mg daily, and patient take 2 tablets daily, and will check again, Patient to continue antidepressant, Patient encouraged to follow with the primary care physician, Medications Home Meds Active Scripts Clotrimazole (Clotrim) 15 Gm Cr, 1 APPLIC TOP BID for 14 Days, #1 TUB Prov:KEAGAN MCDONALD MD 04/13/17 Insulin Detemir (Levemir Flextouch) 100 Unit/1 Ml Insuln.pen, 35 UNIT SC BID for 14 Days, #1 VIAL Prov:KEAGAN MCDONALD MD 04/13/17 [Nicotine (14 Mg/24 Hr)] 1 PATCH PATCH No Conflict Check, 1 PATCH TRANSDERM DAILY for 14 Days, #14 Prov:KEAGAN MCDONALD MD 04/13/17 Ciprofloxacin Hcl* (Ciprofloxacin Hcl*) 250 Mg Tablet, 750 MG PO BID@06,18 for 10 Days, #20 TAB Prov:KEAGAN MCDONALD MD 04/13/17 Reported Medications Sertraline Hcl* (Zoloft*) 100 Mg Tablet, 200 MG PO DAILY, #60 TAB 04/10/17 Olanzapine* (Zyprexa*) 15 Mg Tablet, 15 MG PO DAILY, #30 TAB 04/10/17 [place] Carbonate* ([place]*) 300 Mg Cap, 300 MG PO BID, CAP 04/10/17 Metformin Hcl* (Metformin Hcl*) 1,000 Mg Tablet, 1000 MG PO WITH BREAKFAST DINNE , #30 TAB 04/10/17 Sertraline Hcl* (Zoloft*) 100 Mg Tablet 07/29/10 Divalproex Sodium (Depakote) 500 Mg Tablet. 07/29/10 Quetiapine Fumarate* (Seroquel*) 200 Mg Tablet 07/29/10 Olanzapine* (Zyprexa*) 15 Mg Tablet 07/29/10 Aspirin (Aspirin) 81 Mg Tablet 07/29/10 Pioglitazone Hcl* (Actos*) 30 Mg Tablet 07/29/10 Metformin Hcl* (Metformin Hcl*) 1,000 Mg Tablet 07/29/10 Benazepril Hcl* (Lotensin*) 10 Mg Tablet 07/29/10 Niacin* (Niaspan*) 500 Mg Tablet.sa 07/29/10 Discontinued Reported Medications [Levemir] No Conflict Check, 60 UNIT SC BID 04/10/17 Insulin Detemir* (Levemir*) 100 U/Ml Vial 07/29/10 Insulin Lispro (Humalog) 100 U/Ml Vial 07/29/10 SAMM JULIEN MD Apr 18, 2017 16:09
== END 2017-04-18 17:00 | disposition home or self-care (01) ==
LOC: DCC 14:42
PROVIDERS: ATTEND Internal Medicine
DX: L03.115 Cellulitis of right lower limb (principal); E11.9 Type 2 diabetes mellitus without complications; I10 Essential (primary) hypertension; F32.9 Major depressive disorder, single episode, unspecified
CPT/HCPCS: 82962; G0463

== ENCOUNTER 2017-05-26 15:54 | Emergency (ER) | payer OTHER ==
[~2017-05-26] VITALS: Ht 185.4 cm; Wt 93.5 kg
[2017-05-26 17:40] VITALS: Ht 185.4 cm; Wt 93.5 kg
[2017-05-26 18:48] LABS: BASOPHIL # 0.1 10^3/ul (0.0-0.1); BASOPHILS % 0.7 % (0.0-2.0); EOSINOPHILS # 0.2 10^3/ul (0.0-0.5); EOSINOPHILS % 2.3 % (0.0-7.0); HEMATOCRIT 40.6 % (42.0-52.0); HEMOGLOBIN 14.1 g/dl (14.0-18.0); LYMPHOCYTES # 3.4 10^3/ul (0.8-2.9); LYMPHOCYTES % 42.3 % (15.0-51.0); MEAN CORPUSCULAR HEMOGLOBIN 29.3 pg (29.0-33.0); MEAN CORPUSCULAR HGB CONC 34.7 g/dl (32.0-37.0); MEAN CORPUSCULAR VOLUME 84.4 fl (82.0-101.0); MEAN PLATELET VOLUME 9.4 fl (7.4-10.4); MONOCYTE # 0.6 10^3/ul (0.3-0.9); MONOCYTES % 7.2 % (0.0-11.0); NEUTROPHILS % 47.3 % (39.0-77.0); PLATELET COUNT 271 10^3/UL (140-415); RED BLOOD COUNT 4.81 10^6/ul (4.70-6.10); RED CELL DISTRIBUTION WIDTH 12.8 % (11.5-14.5); WHITE BLOOD COUNT 8.1 10^3/ul (4.8-10.8)
[2017-05-26 19:10] LABS: ALANINE AMINOTRANSFERASE 45 IU/L (13-69); ALBUMIN 4.4 g/dl (3.3-4.9); ALBUMIN/GLOBULIN RATIO 1.37; ALKALINE PHOSPHATASE 95 IU/L (42-121); ANION GAP 20 (8-16); ASPARTATE AMINO TRANSFERASE 36 IU/L (15-46); BILIRUBIN,INDIRECT 0.2 mg/dl (0-1.1); BILIRUBIN,TOTAL 0.2 mg/dl (0.2-1.3); BLOOD UREA NITROGEN 10 mg/dl (7-20); CARBON DIOXIDE 30 mmol/L (21-31); CHLORIDE 97 mmol/L (97-110); CREATININE 0.63 mg/dl (0.61-1.24); GLUCOSE 126 mg/dl (70-220); POTASSIUM 4.6 mmol/L (3.5-5.1); SODIUM 142 mmol/L (135-144); TOTAL PROTEIN 7.6 g/dl (6.1-8.1)
--- NOTE | 2017-05-26 19:10 | RADRPT ---
PROCEDURE: XR Right Foot CLINICAL INDICATION: Osteomyelitis TECHNIQUE: AP, oblique, and lateral radiographs were submitted. COMPARISON: 04/09/2017 FINDINGS: Osseous structures: An old healed comminuted fracture is again evident at the proximal right third m etatarsal shaft. There is also slight deformity from a healed fracture involving the shaft of the pr oximal phalanx of the right second toe. A compression plate and multiple screws project through the distal tibia. The remaining visualized osseous elements appear intact and no osseous destruction i s evident. Joint spaces: Mild degenerative changes are seen about the first metatarsal tarsal joint space. The remaining joint spaces are well maintained. Soft tissues: There is mild vascular calcification. IMPRESSION: 1. No change to the comminuted old fracture deformity involving the proximal right third metatarsal shaft or to the minimal deformity from a healed fracture involving the mid shaft of the proximal ph alanx of the right second toe. 2. A compression plate and screws again project through the distal tibia. 3. No osseous destruction is evident. 4. Mild degenerative changes again seen about the first metatarsal tarsal joint space. 5. Vascular calcification is again noted. Physician Elizabeth Date Time Electronically viewed and signed by Physician Elizabeth on 05/26/2017 19:09 /
[2017-05-26 19:20] LABS: TROPONIN-I < 0.012 ng/ml (0.00-0.12)
--- NOTE | 2017-05-26 19:57 | RADRPT ---
PROCEDURE: Portable chest x-ray. CLINICAL INDICATION: Chest pain. TECHNIQUE: Portable AP view of the chest. COMPARISON: None. FINDINGS: No pulmonary edema or conolidation is identified. The cardiac silhouette is magnified. No pleural effusion is seen. There is no pneumothorax. IMPRESSION: 1. No evidence of acute cardiopulmonary disease. RPTAT: HTAR .Yared Cat MD, MD Date Time Electronically viewed and signed by .Yared Cat MD, on 05/26/2017 19:57 .R/
--- NOTE | 2017-05-26 20:01 | ERD ---
ER Documentation Chief Complaint Date/Time DATE: 05/26/17 TIME: 19:58 Chief Complaint RT FOOT DIABETIC ULCER HPI Patient is a 51-year-old male who presents with 1 week of wound to the plantar surface of his right foot that has been draining foul-smelling liquid. He states that it is painful. He denies fever. He also reports having several episodes of sharp left parasternal chest pain lasting 1 minute over the last 4 days. He denies shortness of breath, denies pleuritic pain, denies radiation to the arm or neck. He states that the pain is positional, nonexertional, and occasionally occurs with certain movements of his left arm. He denies leg swelling. ROS All systems reviewed and are negative except as per history of present illness. Medications Home Meds Active Scripts Cephalexin* (Keflex*) 500 Mg Capsule, 500 MG PO QID for 10 Days, CAP Prov:VALDO GRANDA MD 05/26/17 Sulfamethoxazole/Trimethoprim* (Bactrim Ds* Tablet) 1 Each Tablet, 1 TAB PO BID , #20 TAB Prov:VALDO GRANDA MD 05/26/17 Clotrimazole (Clotrim) 15 Gm Cr, 1 APPLIC TOP BID for 14 Days, #1 TUB Prov:KEAGAN MCDONALD MD 04/13/17 Insulin Detemir (Levemir Flextouch) 100 Unit/1 Ml Insuln.pen, 35 UNIT SC BID for 14 Days, #1 VIAL Prov:KEAGAN MCDONALD MD 04/13/17 [Nicotine (14 Mg/24 Hr)] 1 PATCH PATCH No Conflict Check, 1 PATCH TRANSDERM DAILY for 14 Days, #14 Prov:KEAGAN MCDONALD MD 04/13/17 Ciprofloxacin Hcl* (Ciprofloxacin Hcl*) 250 Mg Tablet, 750 MG PO BID@06,18 for 10 Days, #20 TAB Prov:KEAGAN MCDONALD MD 04/13/17 Reported Medications Sertraline Hcl* (Zoloft*) 100 Mg Tablet, 200 MG PO DAILY, #60 TAB 04/10/17 Olanzapine* (Zyprexa*) 15 Mg Tablet, 15 MG PO DAILY, #30 TAB 04/10/17 [place]alli Carbonate* (Ravalli*) 300 Mg Cap, 300 MG PO BID, CAP 04/10/17 Metformin Hcl* (Metformin Hcl*) 1,000 Mg Tablet, 1000 MG PO WITH BREAKFAST DINNE , #30 TAB 04/10/17 Sertraline Hcl* (Zoloft*) 100 Mg Tablet 07/29/10 Divalproex Sodium (Depakote) 500 Mg Tablet. 07/29/10 Quetiapine Fumarate* (Seroquel*) 200 Mg Tablet 07/29/10 Olanzapine* (Zyprexa*) 15 Mg Tablet 07/29/10 Aspirin (Aspirin) 81 Mg Tablet 07/29/10 Pioglitazone Hcl* (Actos*) 30 Mg Tablet 07/29/10 Metformin Hcl* (Metformin Hcl*) 1,000 Mg Tablet 07/29/10 Benazepril Hcl* (Lotensin*) 10 Mg Tablet 07/29/10 Niacin* (Niaspan*) 500 Mg Tablet.sa 07/29/10 Allergies Allergies: Coded Allergies: No Known Drug Allergies (Verified Allergy, Mild, 07/24/14) PMhx/Soc Past medical history: Insulin-dependent diabetes mellitus, hypertension, bipolar disorder Past surgical history: Repair of injury to right jaw and right leg. Social history: Smokes tobacco, denies alcohol or illicit drugs. History of Surgery: Yes (RIGHT JAW, RIGHT ANKLE AND RIGHT LEG) Anesthesia Reaction: No Hx Neurological Disorder: No Hx Respiratory Disorders: No Hx Cardiac Disorders: Yes Hx Psychiatric Problems: Yes (BIPOLAR DISORDER, DEPRESSION) Hx Miscellaneous Medical Probl: Yes (DM, FOOT ULCER, HTN, BIPOLAR DISORDER, R FOOT FX) Hx Alcohol Use: No Hx Substance Use: No Hx Tobacco Use: Yes (1 PACK /DAY (USUALLY)) Smoking Status: Current every day smoker FmHx Family History: No coronary disease, No diabetes Physical Exam Vitals Vital Signs Date Time Temp Pulse Resp B/P Pulse Ox O2 Delivery O2 Flow Rate FiO2 05/26/17 18:16 82 18 142/94 99 05/26/17 17:46 98.1 73 20 170/90 100 Room Air 05/26/17 17:40 98.1 -17.7792 18 150/79 98 05/26/17 15:58 98.1 89 18 150/79 98 Physical Exam Const: Alert, no acute distress Head: Atraumatic Eyes: Normal Conjunctiva, no pallor, no icterus ENT: Normal External Ears, Nose and Mouth. Neck: Full range of motion..~ No meningismus. No JVD Resp: Clear to auscultation bilaterally, no wheezes, no rales Cardio: Regular rate and rhythm, no murmurs Abd: Soft, non tender, non distended. Skin: No petechiae or rashes Back: No midline or flank tenderness Ext: No cyanosis, or edema. 2 second cap refill all digits of bilateral feet. 2 cm penetrating ulcer to the right foot without surrounding erythema or expressible discharge. No hemorrhagic bullae. No crepitus in the soft tissue. Tender to palpation. Neur: Awake and alert, cranial nerves II through XII intact bilaterally, strength and sensation full in 4 extremities. Psych: Normal Mood and Affect Result Diagram: 05/26/17 1800 05/26/17 1800 Results 24 hrs Laboratory Tests Test 05/26/17 18:00 White Blood Count 8.110^3/ul Red Blood Count 4.8110^6/ul Hemoglobin 14.1g/dl Hematocrit 40.6% Mean Corpuscular Volume 84.4fl Mean Corpuscular Hemoglobin 29.3pg Mean Corpuscular Hemoglobin Concent 34.7g/dl Red Cell Distribution Width 12.8% Platelet Count 60609^3/UL Mean Platelet Volume 9.4fl Neutrophils % 47.3% Lymphocytes % 42.3% Monocytes % 7.2% Eosinophils % 2.3% Basophils % 0.7% Nucleated Red Blood Cells % 0.0/100WBC Neutrophils # (Manual) 3.810^3/ul Lymphocytes # 3.410^3/ul Monocytes # 0.610^3/ul Eosinophils # 0.210^3/ul Basophils # 0.110^3/ul Nucleated Red Blood Cells # 0.010^3/ul Erythrocyte Sedimentation Rate 25mm/Hr Sodium Level 142mmol/L Potassium Level 4.6mmol/L Chloride Level 97mmol/L Carbon Dioxide Level 30mmol/L Anion Gap 20 Blood Urea Nitrogen 10mg/dl Creatinine 0.63mg/dl Glucose Level 126mg/dl Calcium Level 10.0mg/dl Total Bilirubin 0.2mg/dl Direct Bilirubin 0.00mg/dl Indirect Bilirubin 0.2mg/dl Aspartate Amino Transf (AST/SGOT) 36IU/L Alanine Aminotransferase (ALT/SGPT) 45IU/L Alkaline Phosphatase 95IU/L Troponin I < 0.012ng/ml Total Protein 7.6g/dl Albumin 4.4g/dl Globulin 3.20g/dl Albumin/Globulin Ratio 1.37 Procedures/MDM EKG read by me: Time 1830, rate 70 Rhythm: Normal sinus [place]: Normal Intervals: Normal ST-T waves: no ischemic changes Ectopy: No Q-waves: No Impression: No evidence of ischemia or arrhythmia MDM: Patient is a 51-year-old male who presents to the ER with increased drainage and pain over the last week from a chronic wound to his right foot. On exam there is an ulcer with no active drainage or notable surrounding erythema. There is no sign of vascular insufficiency or necrotic tissue. ESR is marginally elevated and x-ray is not suggestive of osteomyelitis. The patient is not on antibiotics. I have low suspicion for osteomyelitis, and believe that the patient is stable for outpatient treatment with Bactrim and Keflex. I did advise him of the need to follow-up closely with the wound care doctor and to return to the ER if the wound continues to worsen despite antibiotics. The patient also complained of a very atypical chest pain that is sharp and associated with arm movements. This sounds very much like a musculoskeletal pain. Given his risk factors, a troponin and EKG were performed and are unremarkable. His chest x-ray is unremarkable. He has good glycemic control, and is stable for outpatient treatment at this time. Departure Diagnosis: Primary Impression: Diabetic foot infection Additional Impression: Atypical chest pain Condition: Stable VALDO GRANDA MD May 26, 2017 20:01
[2017-05-26] MEDS ORDERED: CEPH-443 PO (20:28)
[2017-05-26] MEDS ORDERED: SULF1TAB31 PO (20:28)
[2017-05-26 20:44] VITALS: BP 155/89; PULSE 84; RESP 18; TEMP 98
== END 2017-05-26 20:45 | disposition home or self-care (01) ==
LOC: E/R 15:54
DX: E11.621 Type 2 diabetes mellitus with foot ulcer (principal); L97.519 Non-pressure chronic ulcer of other part of right foot with unspecified severity; R07.89 Other chest pain; F17.210 Nicotine dependence, cigarettes, uncomplicated; I10 Essential (primary) hypertension; Z79.4 Long term (current) use of insulin; Z79.82 Long term (current) use of aspirin; Z79.84 Long term (current) use of oral hypoglycemic drugs
CPT/HCPCS: 36415; 71010; 73630; 80053; 84484; 85025; 85651; 93005; Z7502

== ENCOUNTER 2017-06-11 08:24 | Emergency (ER) | payer OTHER ==
[~2017-06-11] VITALS: Ht 185.4 cm; Wt 91.0 kg
[~2017-06-11 08:24] MED LIST changes: +CEPH-443 PO; +SULF1TAB31 PO
[2017-06-11 08:26] VITALS: Ht 185.4 cm; Wt 91.0 kg
--- NOTE | 2017-06-11 09:26 | RADRPT ---
PROCEDURE: XR right foot. CLINICAL INDICATION: Osteomyelitis TECHNIQUE: Three views of the right foot were obtained. COMPARISON: 05/26/2017 FINDINGS: There is no acute fracture. An old healed fracture of the proximal third metatarsal shaft is again n oted with deformity and cortical thickening. The metatarsals are in alignment with the cuneiforms wi th mild degenerative changes within the first through third tarsometatarsal joints. There is mild abel int space narrowing and osseous spurring of the first metatarsophalangeal joint. A plate and screws are partially visualized within the distal ulna. No bony destructive changes are present. Vascular calcifications are present. Soft tissues are other saldana unremarkable. RPTAT: EE IMPRESSION: 1. No acute bony abnormality. 2. Deformity of the proximal third metatarsal shaft from prior trauma. 3. Mild osteoarthrosis of the first through third tarsometatarsal joints and first metatarsophalange al joint. 4. If there is suspicion for osteomyelitis and a discrete skin ulcer, a follow-up MRI of the foot ma y be obtained for additional evaluation. .Chio Montes MD, Date Time Electronically viewed and signed by .Chio Montes MD, on 06/11/2017 09:32 .T/
[2017-06-11 09:40] LABS: BASOPHILS % 0.6 % (0.0-2.0); EOSINOPHILS # 0.1 10^3/ul (0.0-0.5); EOSINOPHILS % 2.1 % (0.0-7.0); HEMATOCRIT 39.6 % (42.0-52.0); HEMOGLOBIN 13.9 g/dl (14.0-18.0); LYMPHOCYTES # 2.2 10^3/ul (0.8-2.9); LYMPHOCYTES % 41.3 % (15.0-51.0); MEAN CORPUSCULAR HEMOGLOBIN 30.2 pg (29.0-33.0); MEAN CORPUSCULAR HGB CONC 35.1 g/dl (32.0-37.0); MEAN CORPUSCULAR VOLUME 85.9 fl (82.0-101.0); MONOCYTE # 0.4 10^3/ul (0.3-0.9); MONOCYTES % 6.7 % (0.0-11.0); NEUTROPHILS % 49.1 % (39.0-77.0); PLATELET COUNT 247 10^3/UL (140-415); RED BLOOD COUNT 4.61 10^6/ul (4.70-6.10); RED CELL DISTRIBUTION WIDTH 13.2 % (11.5-14.5); WHITE BLOOD COUNT 5.2 10^3/ul (4.8-10.8)
[2017-06-11 09:57] LABS: CALCIUM 9.8 mg/dl (8.4-10.2); CREATININE 0.57 mg/dl (0.61-1.24); POTASSIUM 4.7 mmol/L (3.5-5.1)
[2017-06-11 10:22] LABS: C-REACTIVE PROTEIN 0.5 mg/dl (0.0-0.9)
[2017-06-11] MEDS ORDERED: traMADol 50 MG TAB PO ONE (11:30)
[2017-06-11] MEDS ORDERED: ASPI-664 PO (12:23)
[2017-06-11] MEDS ORDERED: BENA10TA48 PO (12:24)
[2017-06-11] MEDS ORDERED: LITH300T5 PO (12:25)
[2017-06-11] MEDS ORDERED: METF1000 PO (12:25)
[2017-06-11] MEDS ORDERED: OLAN15TA7 PO (12:27)
[2017-06-11] MEDS ORDERED: GEMF600T60 PO (12:28)
[2017-06-11] MEDS ORDERED: SERT-165 PO (12:28)
[2017-06-11] MEDS ORDERED: PRAV40TA76 PO (12:28)
[2017-06-11] MEDS ORDERED: INSU100I27 SQ (12:29)
[2017-06-11] MEDS ORDERED: INSU100C SQ (12:31)
--- NOTE | 2017-06-11 12:39 | ERD ---
ER Documentation Chief Complaint Date/Time DATE: 06/11/17 TIME: 12:35 Chief Complaint pt bib self with c/o foot pain due to infection x 1 yr HPI 52y/o male with h/o hypertension, hyperlipidemia, diabetes mellitus, bipolar disease and multiple diabetic foot infections presents to the ED for evaluation of right foot pain. He has had a blister on the plantar aspect of his right foot for approximately one month and was evaluated in the ED for same on 2016. Mild worsening pain this week exacerbated by weight bearing but no redness , swelling or drainage. No leg or calf pain. Denies headache, chest pain, palpitations, shortness of breath, abdominal pain, N/V/D/C, anxiety or depression. No fevers or chills. Followed in the [facility] by podiatry, Dr. Lopez. ROS All systems reviewed and are negative except as per history of present illness. Medications Home Meds Active Scripts Sulfamethoxazole/Trimethoprim* (Bactrim Ds* Tablet) 1 Each Tablet, 1 TAB PO BID , #14 TAB Prov:DOROTHY UP MD 06/11/17 Tramadol HCl (Tramadol HCl) 50 Mg Tablet, 50 MG PO Q6 Y for PAIN, #15 TAB Prov:DOROTHY UP MD 06/11/17 Reported Medications Insulin Lispro (Humalog) 100 Unit/1 Ml Cartridge, 12 UNIT SQ AC MEALS Y for NEEDED 06/11/17 Insulin Detemir (Levemir Flextouch) 100 Unit/1 Ml Insuln.pen, 60 UNIT SQ BID 06/11/17 Pravastatin Sodium* (Pravastatin Sodium*) 40 Mg Tablet, 40 MG PO DAILY, TAB 06/11/17 Gemfibrozil* (Gemfibrozil*) 600 Mg Tablet, 600 MG PO BID, TAB 06/11/17 Sertraline Hcl* (Sertraline Hcl*) 100 Mg Tablet, 200 MG PO QHS, #60 TAB 06/11/17 Olanzapine* (Olanzapine*) 15 Mg Tablet, 22.5 MG PO QHS, TAB 06/11/17 Metformin Hcl* (Metformin Hcl*) 1,000 Mg Tablet, 1000 MG PO WITH BREAKFAST DINNE , #60 TAB 06/11/17 O[place] Carbonate* (Olowalu Carbonate*) 300 Mg Tablet, 300 MG PO BID, TAB 06/11/17 Benazepril Hcl* (Benazepril Hcl*) 10 Mg Tablet, 10 MG PO DAILY, #30 TAB 06/11/17 Aspirin* (Aspirin* EC) 81 Mg Tablet.dr, 81 MG PO DAILY, TAB 06/11/17 Discontinued Reported Medications Sertraline Hcl* (Zoloft*) 100 Mg Tablet, 200 MG PO DAILY, #60 TAB 04/10/17 Olanzapine* (Zyprexa*) 15 Mg Tablet, 15 MG PO DAILY, #30 TAB 04/10/17 [place] Carbonate* (Olowalu*) 300 Mg Cap, 300 MG PO BID, CAP 04/10/17 Metformin Hcl* (Metformin Hcl*) 1,000 Mg Tablet, 1000 MG PO WITH BREAKFAST DINNE , #30 TAB 04/10/17 Sertraline Hcl* (Zoloft*) 100 Mg Tablet 07/29/10 Divalproex Sodium (Depakote) 500 Mg Tablet. 07/29/10 Quetiapine Fumarate* (Seroquel*) 200 Mg Tablet 07/29/10 Olanzapine* (Zyprexa*) 15 Mg Tablet 07/29/10 Aspirin (Aspirin) 81 Mg Tablet 07/29/10 Pioglitazone Hcl* (Actos*) 30 Mg Tablet 07/29/10 Metformin Hcl* (Metformin Hcl*) 1,000 Mg Tablet 07/29/10 Benazepril Hcl* (Lotensin*) 10 Mg Tablet 07/29/10 Niacin* (Niaspan*) 500 Mg Tablet.sa 07/29/10 Discontinued Scripts Cephalexin* (Keflex*) 500 Mg Capsule, 500 MG PO QID for 10 Days, CAP Prov:VALDO GRANDA MD 05/26/17 Sulfamethoxazole/Trimethoprim* (Bactrim Ds* Tablet) 1 Each Tablet, 1 TAB PO BID , #20 TAB Prov:VALDO GRANDA MD 05/26/17 Clotrimazole (Clotrim) 15 Gm Cr, 1 APPLIC TOP BID for 14 Days, #1 TUB Prov:KEAGAN MCDONALD MD 04/13/17 Insulin Detemir (Levemir Flextouch) 100 Unit/1 Ml Insuln.pen, 35 UNIT SC BID for 14 Days, #1 VIAL Prov:KEAGAN MCDONALD MD 04/13/17 [Nicotine (14 Mg/24 Hr)] 1 PATCH PATCH No Conflict Check, 1 PATCH TRANSDERM DAILY for 14 Days, #14 Prov:KEAGAN MCDONALD MD 04/13/17 Ciprofloxacin Hcl* (Ciprofloxacin Hcl*) 250 Mg Tablet, 750 MG PO BID@06,18 for 10 Days, #20 TAB Prov:KEAGAN MCDONALD MD 04/13/17 Allergies Allergies: Coded Allergies: No Known Drug Allergies (Verified Allergy, Mild, 06/11/17) PMhx/Soc Reviewed in chart. As per HPI. History of Surgery: Yes (RIGHT JAW, RIGHT ANKLE AND RIGHT LEG) Anesthesia Reaction: No Hx Neurological Disorder: No Hx Respiratory Disorders: No Hx Cardiac Disorders: Yes Hx Psychiatric Problems: Yes (BIPOLAR DISORDER, DEPRESSION) Hx Miscellaneous Medical Probl: Yes (DM, FOOT ULCER, HTN, BIPOLAR DISORDER, R FOOT FX) Hx Alcohol Use: No Hx Substance Use: No Hx Tobacco Use: Yes (1 PACK /DAY (USUALLY)) Smoking Status: Never smoker FmHx Brother:hypertension. No stroke or cancer. Physical Exam Vitals Vital Signs Date Time Temp Pulse Resp B/P Pulse Ox O2 Delivery O2 Flow Rate FiO2 06/11/17 08:26 98.3 100 16 156/86 99 Physical Exam Const: Alert, mild distress due to pain. Head: Atraumatic Eyes: Normal Conjunctiva ENT: Normal External Ears, Nose and Mouth. Neck: Full range of motion. Nontender. Resp: BS equal and clear to auscultation bilaterally Cardio: Regular rate and rhythm, no murmurs Abd: Soft, non tender, non distended. Normal bowel sounds Skin: No petechiae or rashes Back: No midline or flank tenderness Ext: Right Foot: 3cm hard blister over the first metatarsal head. Minimal tenderness. No erythema, fluctuance, drainage or crepitus. No cyanosis, or edema. Pulses equal bilaterally. Neur: Awake and alert. No focal deficit. Psych: Normal Mood and Affect. Does not appear anxious or depressed. Result Diagram: 06/11/1790406/11/17904 Results 24 hrs Laboratory Tests Test 06/11/17 09:05 White Blood Count 5.210^3/ul Red Blood Count 4.6110^6/ul Hemoglobin 13.9g/dl Hematocrit 39.6% Mean Corpuscular Volume 85.9fl Mean Corpuscular Hemoglobin 30.2pg Mean Corpuscular Hemoglobin Concent 35.1g/dl Red Cell Distribution Width 13.2% Platelet Count 30830^3/UL Mean Platelet Volume 9.0fl Neutrophils % 49.1% Lymphocytes % 41.3% Monocytes % 6.7% Eosinophils % 2.1% Basophils % 0.6% Nucleated Red Blood Cells % 0.0/100WBC Neutrophils # (Manual) 2.610^3/ul Lymphocytes # 2.210^3/ul Monocytes # 0.410^3/ul Eosinophils # 0.110^3/ul Basophils # 0.010^3/ul Nucleated Red Blood Cells # 0.010^3/ul Sodium Level 136mmol/L Potassium Level 4.7mmol/L Chloride Level 102mmol/L Carbon Dioxide Level 28mmol/L Anion Gap 11 Blood Urea Nitrogen 12mg/dl Creatinine 0.57mg/dl Glucose Level 141mg/dl Calcium Level 9.8mg/dl C-Reactive Protein 0.5mg/dl Current Medications Medications (Trade) Dose Ordered Sig/Ramírez Route PRN Reason Start Time Stop Time Status Last Admin Dose Admin Tramadol HCl (Ultram) 50 mg ONCE ONCE PO 06/11/17 11:30 06/11/17 11:31 DC 06/11/17 11:32 PROCEDURE: XR right foot. CLINICAL INDICATION: Osteomyelitis TECHNIQUE: Three views of the right foot were obtained. COMPARISON: 05/26/2017 FINDINGS: There is no acute fracture. An old healed fracture of the proximal third metatarsal shaft is again noted with deformity and cortical thickening. The metatarsals are in alignment with the cuneiforms with mild degenerative changes within the first through third tarsometatarsal joints. There is mild joint space narrowing and osseous spurring of the first metatarsophalangeal joint. A plate and screws are partially visualized within the distal ulna. No bony destructive changes are present. Vascular calcifications are present. Soft tissues are otherwise unremarkable. RPTAT: EE IMPRESSION: 1. No acute bony abnormality. 2. Deformity of the proximal third metatarsal shaft from prior trauma. 3. Mild osteoarthrosis of the first through third tarsometatarsal joints and first metatarsophalangeal joint. 4. If there is suspicion for osteomyelitis and a discrete skin ulcer, a follow- up MRI of the foot may be obtained for additional evaluation. .Chio Montes MD, MD Date Time Electronically viewed and signed by .Chio Montes MD, MD on 06/11/2017 09: 32 .T/ Procedures/MDM DOCUMENTS REVIEWED: ED nurse, prior ED visits and medical records including admission 04/10/2017 for diabetic foot infection and abscess. MEDICAL DECISION MAKINy/o male with h/o hypertension, hyperlipidemia, diabetes mellitus, bipolar disease and multiple diabetic foot infections presents to the ED for evaluation of right foot pain. Plantar ulcer right foot. Possible underlying abscess and osteomyelitis. No necrotizing fasciitis. No SIRS or sepsis. No hyperglycemia. No acute ischemic changes. At risk for limb loss and severe snf disability if not treated aggressively. Shared decision making regarding disposition but does not want to be admitted. Agrees to mandatory followup with podiatry in 2 days. Stable for discharge with precautionary instructions, appropriate analgesics, oral antibiotics and mandatory, urgent outpatient followup as counseled. Counseled patient regarding diagnostic workup, diagnosis and need for followup. Understands to return to ED if symptoms recur, worsen or any other concerns. Departure Diagnosis: Primary Impression: Foot pain Laterality: right Qualified Code: M79.671 - Right foot pain Additional Impressions: Plantar ulcer of right foot Non-pressure ulcer stage: unspecified non-pressure ulcer stage Qualified Code : L97.519 - Plantar ulcer of right foot, unspecified ulcer stage Diabetic foot ulcer associated with type 2 diabetes mellitus Diabetic foot ulcer location: other Laterality: right Non-pressure ulcer stage: unspecified non-pressure ulcer stage Qualified Code: E11.621 - Diabetic ulcer of other part of right foot associated with type 2 diabetes mellitus, unspecified ulcer stage Diabetic foot infection Insulin dependent diabetes mellitus Condition: Stable (with mandatory, urgent outpatient followup) DOROTHY UP MD Jun 11, 2017 12:39
[2017-06-11] MEDS ORDERED: TRAM50TA2 PO (12:42)
[2017-06-11] MEDS ORDERED: SULF1TAB31 PO (12:42)
== END 2017-06-11 13:17 | disposition home or self-care (01) ==
LOC: E/R 08:24
DX: M79.671 Pain in right foot (principal); E11.621 Type 2 diabetes mellitus with foot ulcer; L97.519 Non-pressure chronic ulcer of other part of right foot with unspecified severity; I10 Essential (primary) hypertension; Z79.4 Long term (current) use of insulin; Z79.82 Long term (current) use of aspirin; Z79.84 Long term (current) use of oral hypoglycemic drugs; Z87.891 Personal history of nicotine dependence
CPT/HCPCS: 73630; 80048; 85025; 86140; Z7502; Z7610

== ENCOUNTER 2017-07-29 07:12 | Emergency (ER) | payer OTHER ==
[~2017-07-29] VITALS: Wt 81.8 kg
[~2017-07-29 07:12] MED LIST changes: -ASPI-650; +ASPI-664 PO; -BENA10TA; +BENA10TA48 PO; -CEPH-443 PO; -CIPR-193 PO; -CLO15CR1 TOP; -DIVA500T33; +GEMF600T60 PO; +INSU100C SQ; -INSU100I27 SC; +INSU100I27 SQ; -LIT300 PO; +LITH300T5 PO; -METF1000; -NCN500CCR; -Nicotine (14 Mg/24 Hr) TRANSDERM; -OLAN15TA3; -OLAN15TA3 PO; +OLAN15TA7 PO; -PIOG30TA19; +PRAV40TA76 PO; -QUET200T; +SERT-165 PO; -SERT100T; -SERT100T PO; +TRAM50TA2 PO
[2017-07-29] MEDS ORDERED: HYDR-902 PO (07:46)
[2017-07-29] MEDS ORDERED: CEPH-443 PO (07:46)
[2017-07-29] MEDS ORDERED: SULF1TAB31 PO (07:46)
--- NOTE | 2017-07-29 10:21 | ERD ---
ER Documentation Chief Complaint Chief Complaint r. foot ulcer HPI Patient is a 52-year-old male with hypertension and diabetes who presents with a foot ulcer. He said that he has a wound to his right foot and he has ulcer pain. He said he has had this ulcer for about 1 year. He said that he has had pain over the past 2 weeks. He was given antibiotics in the past and said that it got better but that he ran out of antibiotics and wanted a refill because it is getting worse. He plans to see the [facility]. He has no fevers. His primary doctor is Dr. Rodriguez. ROS All systems reviewed and are negative except as per history of present illness. Medications Home Meds Active Scripts Sulfamethoxazole/Trimethoprim* (Bactrim Ds* Tablet) 1 Each Tablet, 1 TAB PO BID , #14 TAB Prov:SLY GALLEGOS MD 07/29/17 Cephalexin* (Keflex*) 500 Mg Capsule, 500 MG PO QID for 7 Days, CAP Prov:SLY GALLEGOS MD 07/29/17 Hydrocodone/Acetaminophen ([place] 10-325 Tablet) 1 Each Tablet, 1 TAB PO Q6H Y for PAIN, #7 TAB Prov:SLY GALLEGOS MD 07/29/17 Sulfamethoxazole/Trimethoprim* (Bactrim Ds* Tablet) 1 Each Tablet, 1 TAB PO BID , #14 TAB Prov:DOROTHY UP MD 06/11/17 Tramadol HCl (Tramadol HCl) 50 Mg Tablet, 50 MG PO Q6 Y for PAIN, #15 TAB Prov:DOROTHY UP MD 06/11/17 Reported Medications Insulin Lispro (Humalog) 100 Unit/1 Ml Cartridge, 12 UNIT SQ AC MEALS Y for NEEDED 06/11/17 Insulin Detemir (Levemir Flextouch) 100 Unit/1 Ml Insuln.pen, 60 UNIT SQ BID 06/11/17 Pravastatin Sodium* (Pravastatin Sodium*) 40 Mg Tablet, 40 MG PO DAILY, TAB 06/11/17 Gemfibrozil* (Gemfibrozil*) 600 Mg Tablet, 600 MG PO BID, TAB 06/11/17 Sertraline Hcl* (Sertraline Hcl*) 100 Mg Tablet, 200 MG PO QHS, #60 TAB 06/11/17 Olanzapine* (Olanzapine*) 15 Mg Tablet, 22.5 MG PO QHS, TAB 06/11/17 Metformin Hcl* (Metformin Hcl*) 1,000 Mg Tablet, 1000 MG PO WITH BREAKFAST DINNE , #60 TAB 06/11/17 [place] Carbonate* (Calvin Carbonate*) 300 Mg Tablet, 300 MG PO BID, TAB 06/11/17 Benazepril Hcl* (Benazepril Hcl*) 10 Mg Tablet, 10 MG PO DAILY, #30 TAB 06/11/17 Aspirin* (Aspirin* EC) 81 Mg Tablet.dr, 81 MG PO DAILY, TAB 06/11/17 Allergies Allergies: Coded Allergies: No Known Drug Allergies (Verified Allergy, Mild, 06/11/17) PMhx/Soc History of Surgery: Yes (RIGHT JAW, RIGHT ANKLE AND RIGHT LEG) Anesthesia Reaction: No Hx Neurological Disorder: No Hx Respiratory Disorders: No Hx Cardiac Disorders: Yes Hx Psychiatric Problems: Yes (BIPOLAR DISORDER, DEPRESSION) Hx Miscellaneous Medical Probl: Yes (DM, FOOT ULCER, HTN, BIPOLAR DISORDER, R FOOT FX) Hx Alcohol Use: No Hx Substance Use: No Hx Tobacco Use: Yes (1 PACK /DAY (USUALLY)) Smoking Status: Current every day smoker FmHx Family History: No diabetes Physical Exam Vitals Vital Signs Date Time Temp Pulse Resp B/P Pulse Ox O2 Delivery O2 Flow Rate FiO2 07/29/17 07:18 98.1 98 20 176/81 98 Physical Exam Const: No acute distress Head: Atraumatic Eyes: Normal Conjunctiva ENT: Normal External Ears, Nose and Mouth. Neck: Full range of motion..~ No meningismus. Resp: Clear to auscultation bilaterally Cardio: Regular rate and rhythm, no murmurs Abd: Soft, non tender, non distended. Normal bowel sounds Skin: 3 x 3 cm ulcer to the base of the right foot, chronic appearing Back: No midline or flank tenderness Ext: No cyanosis, or edema Neur: Awake and alert Psych: Normal Mood and Affect Procedures/MDM Smoking Cessation Therapy: Pt. was lectured for greater than 3 minutes on the health risks of continued smoking and the benefits of cessation. Patient is a 52-year-old male with diabetes and smoking who presents with an ulcer to the base of the right foot. This appears to be an acute on chronic ulcer and the patient will be treated with Bactrim and Keflex. I do not think he needs admission to the hospital at this time and I believe outpatient management is appropriate but I do think that close podiatry follow-up at the [facility] is appropriate. I told him that we will discharge him but they should go directly to the [facility] to schedule an appointment. He said he will do so. The patient will be given a short course of [place] for pain. Departure Diagnosis: Primary Impression: Diabetic foot ulcer Diabetic foot ulcer location: unspecified part of foot Diabetes mellitus type : other specified (including JONY) Laterality: right Non-pressure ulcer stage: unspecified non-pressure ulcer stage Qualified Code: E13.621 - Diabetic ulcer of right foot associated with other specified diabetes mellitus, unspecified part of foot, unspecified ulcer stage Condition: Fair Patient Instructions: Diabetic Foot Ulcers Referrals: [facility] Additional Instructions: Go upstairs to the [facility] to make an appointment to see a [employer]. SLY GALLEGOS MD Jul 29, 2017 10:21
== END 2017-07-29 08:25 | disposition home or self-care (01) ==
LOC: FTE 07:12
DX: E13.621 Other specified diabetes mellitus with foot ulcer (principal); I10 Essential (primary) hypertension; L97.519 Non-pressure chronic ulcer of other part of right foot with unspecified severity; F17.210 Nicotine dependence, cigarettes, uncomplicated; Z79.4 Long term (current) use of insulin; Z79.82 Long term (current) use of aspirin; Z79.84 Long term (current) use of oral hypoglycemic drugs
CPT/HCPCS: 99284

== ENCOUNTER 2017-08-24 07:04 | Emergency (ER) | payer OTHER ==
[~2017-08-24] VITALS: Ht 182.9 cm; Wt 93.0 kg
[~2017-08-24 07:04] MED LIST changes: +CEPH-443 PO; +HYDR-902 PO
[2017-08-24 07:06] VITALS: Ht 182.9 cm; Wt 93.0 kg
--- NOTE | 2017-08-24 08:39 | ERD ---
ER Documentation Chief Complaint Chief Complaint diabetic ulcer right foot x 1 year HPI 52 y/o male patient with history of type 2 diabetes and right chronic foot pain secondary to a noninfected callus, presents to the emergency department c/o gradual onset of pain, constant, located over plantar area, that started 1 year ago. The pain is sharp, rated 8/10, without radiation. The symptoms are probably caused by the callus and are associated with mild limping. Aggravating factors: Walking. Alleviating factors: Shoes with the insert. Denies fever, chills, N/V/D. No local erythema, edema, no signs of infection. Treatment attempted: Hunter, the patient has an appointment with escrow officer in 2 weeks. Previous evaluation: None. History was given by patient ROS SYSTEMIC symptoms: no fever, chills, no night sweats, no weight loss EYE symptoms: No blurred vision, no eye discharge OTOLARYNGEAL symptoms: No hearing loss. No ear pain, no sore throat CARDIOVASCULAR symptoms: No chest pain or discomfort, no palpitations. PULMONARY symptoms: No dyspnea, no cough, no wheezing. GASTROINTESTINAL symptoms: No abdominal pain, no nausea, no vomiting, no diarrhea MUSCULOSKELETAL symptoms: No arthralgias, no muscle aches. NEUROLOGY symptoms: No confusion, no syncope, no numbness or tingling. SKIN: No rashes Medications Home Meds Active Scripts Hydrocodone/Acetaminophen (Hunter 10-325 Tablet) 1 Each Tablet, 1 TAB PO Q12 Y for PAIN, #12 TAB Prov:RICHARD BAÑUELOS MD 08/24/17 Sulfamethoxazole/Trimethoprim* (Bactrim Ds* Tablet) 1 Each Tablet, 1 TAB PO BID , #14 TAB Prov:SLY GALLEGOS MD 07/29/17 Cephalexin* (Keflex*) 500 Mg Capsule, 500 MG PO QID for 7 Days, CAP Prov:SLY GALLEGOS MD 07/29/17 Hydrocodone/Acetaminophen ([place] 10-325 Tablet) 1 Each Tablet, 1 TAB PO Q6H Y for PAIN, #7 TAB Prov:SLY GALLEGOS MD 07/29/17 Sulfamethoxazole/Trimethoprim* (Bactrim Ds* Tablet) 1 Each Tablet, 1 TAB PO BID , #14 TAB Prov:DOROTHY UP MD 06/11/17 Tramadol HCl (Tramadol HCl) 50 Mg Tablet, 50 MG PO Q6 Y for PAIN, #15 TAB Prov:DOROTHY UP MD 06/11/17 Reported Medications Insulin Lispro (Humalog) 100 Unit/1 Ml Cartridge, 12 UNIT SQ AC MEALS Y for NEEDED 06/11/17 Insulin Detemir (Levemir Flextouch) 100 Unit/1 Ml Insuln.pen, 60 UNIT SQ BID 06/11/17 Pravastatin Sodium* (Pravastatin Sodium*) 40 Mg Tablet, 40 MG PO DAILY, TAB 06/11/17 Gemfibrozil* (Gemfibrozil*) 600 Mg Tablet, 600 MG PO BID, TAB 06/11/17 Sertraline Hcl* (Sertraline Hcl*) 100 Mg Tablet, 200 MG PO QHS, #60 TAB 06/11/17 Olanzapine* (Olanzapine*) 15 Mg Tablet, 22.5 MG PO QHS, TAB 06/11/17 Metformin Hcl* (Metformin Hcl*) 1,000 Mg Tablet, 1000 MG PO WITH BREAKFAST DINNE , #60 TAB 06/11/17 [place] Carbonate* ([place] Carbonate*) 300 Mg Tablet, 300 MG PO BID, TAB 06/11/17 Benazepril Hcl* (Benazepril Hcl*) 10 Mg Tablet, 10 MG PO DAILY, #30 TAB 06/11/17 Aspirin* (Aspirin* EC) 81 Mg Tablet.dr, 81 MG PO DAILY, TAB 06/11/17 Allergies Allergies: Coded Allergies: No Known Drug Allergies (Verified Allergy, Mild, 06/11/17) PMhx/Soc History of Surgery: Yes (RIGHT JAW, RIGHT ANKLE AND RIGHT LEG) Anesthesia Reaction: No Hx Neurological Disorder: No Hx Respiratory Disorders: No Hx Cardiac Disorders: Yes Hx Psychiatric Problems: Yes (BIPOLAR DISORDER, DEPRESSION) Hx Miscellaneous Medical Probl: Yes (DM, FOOT ULCER, HTN, BIPOLAR DISORDER, R FOOT FX) Hx Alcohol Use: No Hx Substance Use: No Hx Tobacco Use: Yes (1 PACK /DAY (USUALLY)) Physical Exam Vitals Vital Signs Date Time Temp Pulse Resp B/P Pulse Ox O2 Delivery O2 Flow Rate FiO2 08/24/17 07:06 97.6 115 18 171/90 99 Physical Exam Patient is in no acute distress, vital signs stable. Alert and fully oriented. EYES: PERRLA, EOMI, Sclera and conjunctiva appear normal. EARS: Canals clear, tympanic membranes WNL THROAT: Normal oropharynx. NECK: Supple, No lymphadenopathy. Full ROM without pain or tenderness. HEART: RRR, no rubs, murmurs, clicks or gallops. LUNGS: Clear to auscultation. ABDOMEN: Soft, non-tender without masses or hepatosplenomegaly. EXTREMITIES: No edema bilaterally. Right foot: 3 cm area of hyperkeratosis, round, well-defined over lateral access aspect of right sole. No signs of infection BACK: Full ROM, no deformity, normal back exam NEURO: Cranial nerves grossly intact, no motor or sensory deficit Procedures/MDM 51y/o male patient with history of type 2 diabetes and chronic right foot, presents to the ED c/o worsening of right foot pain for the last 3 days days. Vital signs stable, Physical exam unremarkable except for 3 cm callus on the sole of the right food, without evidence of infection. Differential diagnosis include but not limited to: Viral wart, callus, corn, diabetic ulcer, foreign body. Physical examination and clinical presentation consistent most likely with noninfected callus in a diabetic patient. During the ED course the patient remained stable, without new complaints. Results and clinical impression discussed with patient who agrees with management. The patient is stable to be treated outpatient and will be discharged home with a Rx for Hunter 12 tablets and follow-up with escrow officer on September 06 Side effects of prescribed opiates (drowsiness, habituation) were reviewed. The patient was instructed to follow up with the primary care provider in the next 48h. If symptoms persist, worsen or new symptoms develop, then patient should return to the ED immediately. Instructions explained and given to patient in Telugu with acknowledgment and demonstrated understanding. Disclaimer: Inadvertent spelling and grammatical errors are likely due to EHR/ dictation software use and do not reflect on the overall quality of patient care. Also, please note that the electronic time recorded on this note does not necessarily reflect the actual time of the patient encounter. Departure Diagnosis: Primary Impression: Corns and callus Condition: Stable Additional Instructions: Call your primary care doctor TOMORROW for an appointment during the next 1-2 days. See the doctor sooner or return here if your condition worsens before your appointment time. Thank you very much for allowing us to participate in your care. Your health and safety is our top priority at [facility]. Have prescriptions filled and follow precisely the directions on the label. Follow-up with primary care provider during the next 4 days and bring all the information and medications prescribed. If illness has not improved in 2 days, then make an appointment with primary care provider. If the provider is unavailable, return to the Emergency Department immediately. RICHARD BAÑUELOS MD Aug 24, 2017 08:39
[2017-08-24] MEDS ORDERED: HYDR-902 PO (08:40)
== END 2017-08-24 08:46 | disposition home or self-care (01) ==
LOC: FTE 07:04
DX: L84 Corns and callosities (principal); E11.9 Type 2 diabetes mellitus without complications; I10 Essential (primary) hypertension; F17.210 Nicotine dependence, cigarettes, uncomplicated; Z79.4 Long term (current) use of insulin; Z79.84 Long term (current) use of oral hypoglycemic drugs; Z79.82 Long term (current) use of aspirin
CPT/HCPCS: 99283

== ENCOUNTER 2017-09-16 12:47 | Emergency (ER) | payer OTHER ==
[~2017-09-16] VITALS: Ht 177.8 cm; Wt 90.4 kg
[2017-09-16 12:50] VITALS: Ht 177.8 cm; Wt 90.4 kg
[2017-09-16] MEDS ORDERED: LIDOCAINE/MYLANTA 40 ML BTL PO ONE (14:30)
[2017-09-16] MEDS ORDERED: PANTOPRAZOLE (EC) 40 MG TAB PO ONE (14:30)
[2017-09-16] MEDS ORDERED: PANT40TA3 PO (14:59)
--- NOTE | 2017-09-16 18:55 | ERD ---
ER Documentation Chief Complaint Chief Complaint Complains of a abdominal pain x 5 days HPI Patient is a 52-year-old male with hypertension and diabetes who presents with abdominal pain. The patient has periumbilical pain which started last night. The pain is been constant and sharp in nature. He tried Pepto-Bismol. He says "it feels like my stomach". Upon review of old medical records the patient has multiple visits to the ER for various complaints. Upon review of the emergency department information exchange system the patient has visits to 2 separate emergency departments and he has had 3 visits to the ER in September. ROS All systems reviewed and are negative except as per history of present illness. Medications Home Meds Active Scripts Pantoprazole* (Protonix*) 40 Mg Tablet.dr, 40 MG PO DAILY, #20 TAB Prov:SLY GALLEGOS MD 09/16/17 Hydrocodone/Acetaminophen ([place] 10-325 Tablet) 1 Each Tablet, 1 TAB PO Q12 Y for PAIN, #12 TAB Prov:RICHARD BAÑUELOS MD 08/24/17 Sulfamethoxazole/Trimethoprim* (Bactrim Ds* Tablet) 1 Each Tablet, 1 TAB PO BID , #14 TAB Prov:SLY GALLEGOS MD 07/29/17 Cephalexin* (Keflex*) 500 Mg Capsule, 500 MG PO QID for 7 Days, CAP Prov:SLY GALLEGOS MD 07/29/17 Hydrocodone/Acetaminophen ([place] 10-325 Tablet) 1 Each Tablet, 1 TAB PO Q6H Y for PAIN, #7 TAB Prov:SLY GALLEGOS MD 07/29/17 Sulfamethoxazole/Trimethoprim* (Bactrim Ds* Tablet) 1 Each Tablet, 1 TAB PO BID , #14 TAB Prov:DOROTHY UP MD 06/11/17 Tramadol HCl (Tramadol HCl) 50 Mg Tablet, 50 MG PO Q6 Y for PAIN, #15 TAB Prov:DOROTHY UP MD 06/11/17 Reported Medications Insulin Lispro (Humalog) 100 Unit/1 Ml Cartridge, 12 UNIT SQ AC MEALS Y for NEEDED 06/11/17 Insulin Detemir (Levemir Flextouch) 100 Unit/1 Ml Insuln.pen, 60 UNIT SQ BID 06/11/17 Pravastatin Sodium* (Pravastatin Sodium*) 40 Mg Tablet, 40 MG PO DAILY, TAB 06/11/17 Gemfibrozil* (Gemfibrozil*) 600 Mg Tablet, 600 MG PO BID, TAB 06/11/17 Sertraline Hcl* (Sertraline Hcl*) 100 Mg Tablet, 200 MG PO QHS, #60 TAB 06/11/17 Olanzapine* (Olanzapine*) 15 Mg Tablet, 22.5 MG PO QHS, TAB 06/11/17 Metformin Hcl* (Metformin Hcl*) 1,000 Mg Tablet, 1000 MG PO WITH BREAKFAST DINNE , #60 TAB 06/11/17 [place] Carbonate* ([place] Carbonate*) 300 Mg Tablet, 300 MG PO BID, TAB 06/11/17 Benazepril Hcl* (Benazepril Hcl*) 10 Mg Tablet, 10 MG PO DAILY, #30 TAB 06/11/17 Aspirin* (Aspirin* EC) 81 Mg Tablet.dr, 81 MG PO DAILY, TAB 06/11/17 Allergies Allergies: Coded Allergies: No Known Drug Allergies (Verified Allergy, Mild, 06/11/17) PMhx/Soc Positive for hypertension and diabetes History of Surgery: No Anesthesia Reaction: No Hx Neurological Disorder: No Hx Respiratory Disorders: No Hx Cardiac Disorders: No Hx Psychiatric Problems: No Hx Miscellaneous Medical Probl: No Hx Alcohol Use: No Hx Substance Use: No Hx Tobacco Use: No FmHx Family History: No diabetes Physical Exam Vitals Vital Signs Date Time Temp Pulse Resp B/P Pulse Ox O2 Delivery O2 Flow Rate FiO2 09/16/17 12:50 99.0 109 20 164/99 100 Physical Exam Const: Moderate distress secondary to pain Head: Atraumatic Eyes: Normal Conjunctiva ENT: Normal External Ears, Nose and Mouth. Neck: Full range of motion..~ No meningismus. Resp: Clear to auscultation bilaterally Cardio: Regular rate and rhythm, no murmurs Abd: Soft, periumbilical tenderness to palpation without rebound or guarding Skin: No petechiae or rashes Back: No midline or flank tenderness Ext: No cyanosis, or edema Neur: Awake and alert Psych: Normal Mood and Affect Results 24 hrs Current Medications Medications (Trade) Dose Ordered Sig/Ramírez Route PRN Reason Start Time Stop Time Status Last Admin Dose Admin Miscellaneous Medication (Gi Cocktail (2)) 40 ml ONCE ONCE PO 09/16/17 14:30 09/16/17 14:31 DC 12/15/17 14:59 Pantoprazole (Protonix Tab) 40 mg ONCE ONCE PO 09/16/17 14:30 09/16/17 14:31 DC 09/16/17 14:59 Procedures/MDM Smoking Cessation Therapy: Pt. was lectured for greater than 3 minutes on the health risks of continued smoking and the benefits of cessation. Patient is a 52-year-old male presents with abdominal pain. I believe his symptoms are likely related to gastritis versus reflux. At this point I doubt appendicitis, cholecystitis, pink otitis, or bowel obstruction. I doubt acute coronary syndrome. However the patient will need to follow-up closely with her primary doctor within 24 hours for reevaluation. He can return sooner for any worsening symptoms. He was given a GI cocktail and Protonix prior to discharge will be given a prescription for Protonix. Departure Diagnosis: Primary Impression: Abdominal pain Abdominal location: periumbilical Qualified Code: R10.33 - Periumbilical abdominal pain Condition: Fair Patient Instructions: Abdominal Pain Referrals: TRINA PADILLA (PCP) Additional Instructions: FOLLOW UP WITH YOUR PRIMARY CARE PHYSICIAN TOMORROW.Return to this facility if you are not improving as expected. SLY GALLEGOS MD Sep 16, 2017 18:55
== END 2017-09-16 18:55 | disposition home or self-care (01) ==
LOC: E/R 12:47
DX: R10.33 Periumbilical pain (principal); I10 Essential (primary) hypertension; E11.9 Type 2 diabetes mellitus without complications; Z79.4 Long term (current) use of insulin; Z79.82 Long term (current) use of aspirin; Z79.84 Long term (current) use of oral hypoglycemic drugs
CPT/HCPCS: Z7502; Z7610; 99283

== ENCOUNTER 2017-11-11 11:38 | Emergency (ER) | END 2017-11-11 15:53 | disposition home or self-care (01) ==

== ENCOUNTER 2017-12-23 12:43 | Emergency (ER) | END 2017-12-23 15:50 | disposition home or self-care (01) ==

== ENCOUNTER 2018-01-25 13:38 | Emergency (ER) | END 2018-01-25 18:00 | disposition left against medical advice (07) ==

== ENCOUNTER 2018-03-26 17:06 | Emergency (ER) | END 2018-03-26 19:27 | disposition home or self-care (01) ==

== ENCOUNTER 2018-04-05 08:39 | Emergency (ER) | END 2018-04-05 10:38 | disposition home or self-care (01) ==

== ENCOUNTER 2018-04-29 13:46 | Emergency (ER) | END 2018-04-29 16:58 | disposition home or self-care (01) ==

== ENCOUNTER 2018-09-27 15:54 | Emergency (ER) | END 2018-09-27 18:31 | disposition home or self-care (01) ==

== ENCOUNTER 2018-10-25 14:04 | Emergency (ER) | payer OTHER ==
[~2018-10-25] VITALS: Ht 185.4 cm; Wt 87.5 kg
[~2018-10-25 14:04] MED LIST changes: -ASPI-664 PO; +ASPI-817 PO; +BENA10TA4 PO; -BENA10TA48 PO; +CLOT10TR11 MM; +DOXY100T20 PO; +GABA100C14 PO; -GEMF600T60 PO; +GEMF600T8 PO; +HYDR-3980 PO; +HYDR-4011 PO; -HYDR-902 PO; -METF1000 PO; +METF100010 PO; +OXYC-279 PO; +PANT40TA3 PO
[2018-10-25 14:14] VITALS: Ht 185.4 cm; Wt 87.5 kg
[2018-10-25] MEDS ORDERED: HYDROCODONE/APAP (5/325) TAB PO ONE (17:00)
[2018-10-25] MEDS ORDERED: HYDR-4011 PO (17:08)
[2018-10-25] MEDS ORDERED: SULF1TAB31 PO (17:37)
[2018-10-25] MEDS ORDERED: CEPH-443 PO (17:37)
[2018-10-25 19:08] VITALS: BP 172/93; PULSE 88; RESP 16
--- NOTE | 2018-10-25 20:35 | ERD ---
ER Documentation Chief Complaint Chief Complaint PT with c/o B lower leg pain x1 week, R shoulder x 2 days, no injury report HPI 53-year-old male history of psych disorder, diabetes mellitus with apathy presents the emergency department complaining of bilateral feet pain for the past week and right shoulder pain for the past 2 days. She denies any fevers. Denies trauma. Patient states that his right shoulder pain is moderate in severity worse with movements. ROS All systems reviewed and are negative except as per history of present illness. Medications Home Meds Active Scripts Sulfamethoxazole/Trimethoprim* (Bactrim Ds* Tablet) 1 Each Tablet, 1 TAB PO BID, #10 TAB Prov:GINNA MCKEON PA-C 10/25/18 Cephalexin* (Keflex*) 500 Mg Capsule, 500 MG PO QID for 5 Days, CAP Prov:GINNA MCKOEN PA-C 10/25/18 Hydrocodone/Acetaminophen ([place] 5-325 Tablet) 1 Each Tablet, 1 TAB PO Q6H PRN for PAIN, #10 TAB Prov:GINNA MCKEON PA-C 10/25/18 Hydrocodone/Acetaminophen ([place] 5-325 Tablet) 1 Each Tablet, 1 TAB PO BID PRN for PAIN, #10 TAB Prov:RICHARD BAÑUELOS MD 09/27/18 Cephalexin* (Keflex*) 500 Mg Capsule, 500 MG PO BID for 7 Days, #14 CAP Prov:RICHARD BAÑUELOS MD 09/27/18 Hydrocodone/Acetaminophen ([place] 5-325 Tablet) 1 Each Tablet, 1 TAB PO Q8H PRN for PAIN, #10 TAB Prov:CAMELIA LORENZO MD 04/29/18 Hydrocodone/Acetaminophen ([place] 5-325 Tablet) 1 Each Tablet, 1 TAB PO Q6H PRN for PAIN, #7 TAB Prov:SAMI TAVERAS DO 04/05/18 Cephalexin* (Keflex*) 500 Mg Capsule, 500 MG PO QID for 7 Days, CAP Prov:SAMI TAVERAS DO 04/05/18 Oxycodone HCl/Acetaminophen (P[place] 5-325 mg Tablet) 1 Each Tablet, 1 EACH PO Q6, #10 TAB Prov:SAW OLEA 03/26/18 Cephalexin* (Keflex*) 500 Mg Capsule, 500 MG PO BID for 7 Days, CAP Prov:SAW OLEA 03/26/18 Sulfamethoxazole/Trimethoprim* (Bactrim Ds* Tablet) 1 Each Tablet, 1 TAB PO BID, #14 TAB Prov:SAW OLEA 03/26/18 Clotrimazole* (Mycelex Aman*) 10 Mg Troc, 10 MG MM 5 TIMES DAILY for 14 Days, SPENCER Prov:DANI,MAIA 12/23/17 Doxycycline Hyclate* (Doxycycline Hyclate*) 100 Mg Tablet.dr, 100 MG PO BID for 10 Days, #20 TAB Prov:DANI,MAIA 12/23/17 Gabapentin* (Gabapentin*) 100 Mg Capsule, 100 MG PO QHS, #10 CAP Prov:AIMEE OLEAJAYASHREE Logan 11/11/17 Hydrocodone/Acetaminophen ([place] 5-325 Tablet) 1 Each Tablet, 1 TAB PO Q6H PRN for PAIN, #20 TAB Prov:SAW OLEA Doreen 11/11/17 Pantoprazole* (Protonix*) 40 Mg Tablet., 40 MG PO DAILY, #20 TAB Prov:SLY GALLEGOS MD 09/16/17 Hydrocodone/Acetaminophen ([place] 10-325 Tablet) 1 Each Tablet, 1 TAB PO Q12 PRN for PAIN, #12 TAB Prov:RICHARD BAÑUELOS MD 08/24/17 Sulfamethoxazole/Trimethoprim* (Bactrim Ds* Tablet) 1 Each Tablet, 1 TAB PO BID, #14 TAB Prov:SLY GALLEGOS MD 07/29/17 Cephalexin* (Keflex*) 500 Mg Capsule, 500 MG PO QID for 7 Days, CAP Prov:SLY GALLEGOS MD 07/29/17 Hydrocodone/Acetaminophen ([place] 10-325 Tablet) 1 Each Tablet, 1 TAB PO Q6H PRN for PAIN, #7 TAB Prov:SLY GALLEGOS MD 07/29/17 Sulfamethoxazole/Trimethoprim* (Bactrim Ds* Tablet) 1 Each Tablet, 1 TAB PO BID, #14 TAB Prov:DOROTHY UP MD 06/11/17 Tramadol HCl (Tramadol HCl) 50 Mg Tablet, 50 MG PO Q6 PRN for PAIN, #15 TAB Prov:DOROTHY UP MD 06/11/17 Reported Medications Insulin Lispro (Humalog) 100 Unit/1 Ml Cartridge, 12 UNIT SQ AC MEALS PRN for NEEDED 06/11/17 Insulin Detemir (Levemir Flextouch) 100 Unit/1 Ml Insuln.pen, 60 UNIT SQ BID 06/11/17 Pravastatin Sodium* (Pravastatin Sodium*) 40 Mg Tablet, 40 MG PO DAILY, TAB 06/11/17 Gemfibrozil* (Gemfibrozil*) 600 Mg Tablet, 600 MG PO BID, TAB 06/11/17 Sertraline Hcl* (Sertraline Hcl*) 100 Mg Tablet, 200 MG PO QHS, #60 TAB 06/11/17 Olanzapine* (Olanzapine*) 15 Mg Tablet, 22.5 MG PO QHS, TAB 06/11/17 Metformin Hcl* (Metformin Hcl*) 1,000 Mg Tablet, 1000 MG PO WITH BREAKFAST DINNE, #60 TAB 06/11/17 [place] Carbonate* ([place] Carbonate*) 300 Mg Tablet, 300 MG PO BID, TAB 06/11/17 Benazepril Hcl* (Benazepril Hcl*) 10 Mg Tablet, 10 MG PO DAILY, #30 TAB 06/11/17 Aspirin* (Aspirin* EC) 81 Mg Tablet.dr, 81 MG PO DAILY, TAB 06/11/17 Allergies Allergies: Coded Allergies: No Known Drug Allergies (Verified Allergy, Mild, 03/26/18) PMhx/Soc History of Surgery: No Anesthesia Reaction: No Hx Neurological Disorder: No Hx Respiratory Disorders: No Hx Cardiac Disorders: Yes (HTN ) Hx Psychiatric Problems: No Hx Miscellaneous Medical Probl: Yes (DM ) Hx Alcohol Use: No Hx Substance Use: No Hx Tobacco Use: No Physical Exam Vitals Vital Signs Date Temp Pulse Resp B/P (MAP) Pulse Ox O2 O2 Flow FiO2 Time Delivery Rate 10/25/18 88 16 172/93 99 Room Air 19:08 (119) 10/25/18 69 16 208/97 100 Room Air 16:31 (134) 10/25/18 98.9 81 16 227/110 100 14:14 (149) Physical Exam General: WD/WN, in no apparent distress, non-toxic appearing HENT: NC/AT Eyes: Conjunctiva normal Neck: Supple Pulm: Clear to auscultation, normal labored breathing; no wheezing/rales/rhonchi heard CV: Good capillary refill GI: Non-distended, no guarding Back: No masses Ext: Palpation in the right shoulder, restricted range of motion, +2 radial pulses Neuro: Moves on all fours Skin: intact Psych: Normal mood Results 24 hrs Current Medications Medications Dose Sig/Ramírez Start Time Status Last (Trade) Ordered Route PRN Stop Time Admin Dose Reason Admin Clonidine 0.1 mg ONCE STAT 10/25/18 DC 10/25/18 (Catap[place]) PO 16:37 17:08 10/25/18 16:40 1 tab ONCE ONCE 10/25/18 DC 10/25/18 Acetaminophen PO 17:00 17:08 / 10/25/18 17:01 Hydrocodone Bitart ([place] (5/325)) Procedures/MDM 53-year-old male with history of hypertension, diabetes type 2 with neuropathy and psych disorder presents emerged department with right shoulder pain. Patient's shoulder pain is likely due to calcific tendinitis and moderate degenerative changes. I have discussed with patient that it is best for him to follow-up with an orthopedist for further evaluation management. There is no evidence of any fracture dislocation. In addition patient also had a 3cm hyperkeratotic papule on his right lower foot likely due to diabetic foot, I have given patient empiric treatment with antibiotics and discussed with him to follow-up with a shredding specialist tomorrow. He agreed that he will do this. Patient's blood pressure was elevated (>120/80) but appears stable without evidence of hypertension emergency or urgency. The patient was counseled about the risks of hypertension and urged to pursue outpatient monitoring and therapy within a week with their primary care physician. Patient states that he forgot to take his medication this morning. He was given 0.1 of clonidine in the ED, blood pressure has stabilized.Patient is afebrile, well-appearing and stable to be discharged home. XR right shoulder 1. There is ossification extending through the coracoclavicular ligament. 2. Moderate degenerative change seen about the right AC joint. 3. Calcific tendonitis seen about the right humeral head. Departure Diagnosis: Primary Impression: Diabetic foot Additional Impression: Tendonitis Condition: Stable Patient Instructions: Shoulder Problems, Diabetic Foot Ulcers, Diabetic Foot Care, Tendonitis, Shoulder Pain (Uncertain Cause) Additional Instructions: PLEASE FOLLOW UP WITH PODIATRY OR TOMOGRAPHY TECHNOLOGIST TOMORROW PLEASE MAKE AN APPOINTMENT TO SEE A PRIMARY CARE PHYSICIAN TO GET A REFERRAL FOR AN ORTHO You have been given a medicine which may cause drowsiness.DO NOT DRIVE OR OPERATE DANGEROUS MACHINERY while taking this medicine! Return to this facility if you are not improving as expected. Take all medicines as directed. GINNA MCKEON PA-C Oct 25, 2018 20:35
== END 2018-10-25 19:28 | disposition home or self-care (01) ==
LOC: FTE 14:04
DX: E11.621 Type 2 diabetes mellitus with foot ulcer (principal); M65.221 Calcific tendinitis, right upper arm; L97.529 Non-pressure chronic ulcer of other part of left foot with unspecified severity; I10 Essential (primary) hypertension; Z79.4 Long term (current) use of insulin; Z79.82 Long term (current) use of aspirin
CPT/HCPCS: 73030; Z7502; Z7610

== ENCOUNTER 2018-11-24 09:28 | Emergency (ER) | payer OTHER ==
[~2018-11-24] VITALS: Ht 182.9 cm; Wt 81.0 kg
[2018-11-24 09:32] VITALS: BP 133/71; PULSE 109; RESP 18; Ht 182.9 cm; Wt 81.0 kg
--- NOTE | 2018-11-24 10:50 | ERD ---
ER Documentation Chief Complaint Chief Complaint pt is bib self with c/o left leg pain x 2 wks HPI 53-year-old male, with history of chronic pain on multiple visits to the emergency department, presents today, complaining of persistent chronic left leg pain for 2 weeks. No recent trauma. ROS All systems reviewed and are negative except as per history of present illness. Medications Home Meds Active Scripts Hydrocodone/Acetaminophen (Bland 5-325 Tablet) 1 Each Tablet, 1 TAB PO QHS PRN for PAIN, #10 TAB Prov:RICHARD BAÑUELOS MD 11/24/18 Sulfamethoxazole/Trimethoprim* (Bactrim Ds* Tablet) 1 Each Tablet, 1 TAB PO BID, #10 TAB Prov:GINNA MCKEON PA-C 10/25/18 Cephalexin* (Keflex*) 500 Mg Capsule, 500 MG PO QID for 5 Days, CAP Prov:GINNA MCKEONC 10/25/18 Hydrocodone/Acetaminophen (Bland 5-325 Tablet) 1 Each Tablet, 1 TAB PO Q6H PRN for PAIN, #10 TAB Prov:GINNA MCKEON PA-C 10/25/18 Hydrocodone/Acetaminophen (Bland 5-325 Tablet) 1 Each Tablet, 1 TAB PO BID PRN for PAIN, #10 TAB Prov:RICHARD BAÑUELOS MD 09/27/18 Cephalexin* (Keflex*) 500 Mg Capsule, 500 MG PO BID for 7 Days, #14 CAP Prov:RICHARD BAÑUELOS MD 09/27/18 Hydrocodone/Acetaminophen (Bland 5-325 Tablet) 1 Each Tablet, 1 TAB PO Q8H PRN for PAIN, #10 TAB Prov:CAMELIA LORENZO MD 04/29/18 Hydrocodone/Acetaminophen (Bland 5-325 Tablet) 1 Each Tablet, 1 TAB PO Q6H PRN for PAIN, #7 TAB Prov:SAMI TAVERAS DO 04/05/18 Cephalexin* (Keflex*) 500 Mg Capsule, 500 MG PO QID for 7 Days, CAP Prov:SAMI TAVERAS DO 04/05/18 Oxycodone HCl/Acetaminophen (Percocet 5-325 mg Tablet) 1 Each Tablet, 1 EACH PO Q6, #10 TAB Prov:SAW OLEA C 03/26/18 Cephalexin* (Keflex*) 500 Mg Capsule, 500 MG PO BID for 7 Days, CAP Prov:SAW OLEA C 03/26/18 Sulfamethoxazole/Trimethoprim* (Bactrim Ds* Tablet) 1 Each Tablet, 1 TAB PO BID, #14 TAB Prov:SAW OLEA C 03/26/18 Clotrimazole* (Mycelex Aman*) 10 Mg Troc, 10 MG MM 5 TIMES DAILY for 14 Days, SPENCER Prov:DANI,MAIA 12/23/17 Doxycycline Hyclate* (Doxycycline Hyclate*) 100 Mg Tablet.dr, 100 MG PO BID for 10 Days, #20 TAB Prov:DANI,MAIA 12/23/17 Gabapentin* (Gabapentin*) 100 Mg Capsule, 100 MG PO QHS, #10 CAP Prov:SAW OLEA C 11/11/17 Hydrocodone/Acetaminophen (Bland 5-325 Tablet) 1 Each Tablet, 1 TAB PO Q6H PRN for PAIN, #20 TAB Prov:SAW OLEA C 11/11/17 Pantoprazole* (Protonix*) 40 Mg Tablet., 40 MG PO DAILY, #20 TAB Prov:SLY GALLEGOS MD 09/16/17 Hydrocodone/Acetaminophen (Bland 10-325 Tablet) 1 Each Tablet, 1 TAB PO Q12 PRN for PAIN, #12 TAB Prov:RICHARD BAÑUELOS MD 08/24/17 Sulfamethoxazole/Trimethoprim* (Bactrim Ds* Tablet) 1 Each Tablet, 1 TAB PO BID, #14 TAB Prov:SLY GALLEGOS MD 07/29/17 Cephalexin* (Keflex*) 500 Mg Capsule, 500 MG PO QID for 7 Days, CAP Prov:SLY GALLEGOS MD 07/29/17 Hydrocodone/Acetaminophen (Bland 10-325 Tablet) 1 Each Tablet, 1 TAB PO Q6H PRN for PAIN, #7 TAB Prov:SLY GALLEGOS MD 07/29/17 Sulfamethoxazole/Trimethoprim* (Bactrim Ds* Tablet) 1 Each Tablet, 1 TAB PO BID, #14 TAB Prov:DOROTHY UP MD 9/9/17 Tramadol HCl (Tramadol HCl) 50 Mg Tablet, 50 MG PO Q6 PRN for PAIN, #15 TAB Prov:DOROTHY UP MD 06/11/17 Reported Medications Insulin Lispro (Humalog) 100 Unit/1 Ml Cartridge, 12 UNIT SQ AC MEALS PRN for NEEDED 06/11/17 Insulin Detemir (Levemir Flextouch) 100 Unit/1 Ml Insuln.pen, 60 UNIT SQ BID 06/11/17 Pravastatin Sodium* (Pravastatin Sodium*) 40 Mg Tablet, 40 MG PO DAILY, TAB 06/11/17 Gemfibrozil* (Gemfibrozil*) 600 Mg Tablet, 600 MG PO BID, TAB 06/11/17 Sertraline Hcl* (Sertraline Hcl*) 100 Mg Tablet, 200 MG PO QHS, #60 TAB 06/11/17 Olanzapine* (Olanzapine*) 15 Mg Tablet, 22.5 MG PO QHS, TAB 06/11/17 Metformin Hcl* (Metformin Hcl*) 1,000 Mg Tablet, 1000 MG PO WITH BREAKFAST DINNE, #60 TAB 06/11/17 Maxatawny Carbonate* (Maxatawny Carbonate*) 300 Mg Tablet, 300 MG PO BID, TAB 06/11/17 Benazepril Hcl* (Benazepril Hcl*) 10 Mg Tablet, 10 MG PO DAILY, #30 TAB 06/11/17 Aspirin* (Aspirin* EC) 81 Mg Tablet.dr, 81 MG PO DAILY, TAB 06/11/17 Allergies Allergies: Coded Allergies: No Known Drug Allergies (Verified Allergy, Mild, 03/26/18) PMhx/Soc History of Surgery: No Anesthesia Reaction: No Hx Neurological Disorder: No Hx Respiratory Disorders: No Hx Cardiac Disorders: Yes (HTN ) Hx Psychiatric Problems: No Hx Miscellaneous Medical Probl: Yes (DM ) Hx Alcohol Use: No Hx Substance Use: No Hx Tobacco Use: No Physical Exam Vitals Vital Signs Date Temp Pulse Resp B/P (MAP) Pulse Ox O2 O2 Flow FiO2 Time Delivery Rate 11/24/18 97.6 109 18 133/71 99 09:32 (91) Physical Exam Const: No acute distress Head: Atraumatic Eyes: Normal Conjunctiva ENT: Normal External Ears, Nose and Mouth. Neck: Full range of motion. No meningismus. Resp: Clear to auscultation bilaterally Cardio: Regular rate and rhythm, no murmurs Abd: Soft, non tender, non distended. Normal bowel sounds Skin: No petechiae or rashes Back: No midline or flank tenderness Ext: No cyanosis, or edema Neur: Awake and alert Psych: Normal Mood and Affect Procedures/MDM Vital signs stable; physical exam unremarkable. [employer] AGS system reviewed, shows 1 prescription every month for #10 Norcos During the ED course the patient remained stable, no new complaints. I strongly recommended the use of nonpharmacologic treatment with self- management strategies, behavioral treatments, physical therapy as well as noncontrol pharmacotherapy like hydroxyzine. Follow up with the primary care provider in the next 48h has been recommended. Instructions explained and given directly by me to the patient with acknowledgment and demonstrated understanding. Disclaimer: Inadvertent spelling and grammatical errors are likely due to EHR/dictation software use and do not reflect on the overall quality of patient care. Also, please note that the electronic time recorded on this note does not necessarily reflect the actual time of the patient encounter. Departure Diagnosis: Primary Impression: Chronic foot pain Additional Impression: Diabetic neuropathy Condition: Stable Additional Instructions: Thank you very much for allowing us to participate in your care. Your health and safety is our top priority at [facility]. Call your primary care doctor TOMORROW for an appointment during the next 2-4 days and bring all the information and medications prescribed. Have prescriptions filled and follow precisely the directions on the label. If the symptoms get worse and your provider is unavailable, return to the Emergency Department immediately. RICHARD BAÑUELOS MD Nov 24, 2018 10:50
[2018-11-24] MEDS ORDERED: HYDR-4011 PO (10:56)
== END 2018-11-24 11:09 | disposition home or self-care (01) ==
LOC: FTE 09:28
DX: M79.605 Pain in left leg (principal); E11.40 Type 2 diabetes mellitus with diabetic neuropathy, unspecified; I10 Essential (primary) hypertension; Z79.4 Long term (current) use of insulin; Z79.82 Long term (current) use of aspirin
CPT/HCPCS: 99283